=== PATIENT | female | born 1955 | race Caucasian/White ===

== ENCOUNTER 2019-11-11 07:30 | Outpatient (CLI) | payer MEDICARE, SELFPAY ==
--- NOTE | ~2019-11-11 | MM_ITS ---
EXAMINATION: MM screening helen BI w matthew HISTORY: Screening TECHNIQUE: Craniocaudal and mediolateral oblique 3-D tomosynthesis images were obtained and synthetic 2-D images were generated. CAD analysis was submitted and interpreted. COMPARISON: Comparison to multiple prior studies sequentially, with oldest reviewed study dated 12/2013. BREAST PARENCHYMAL COMPOSITION: There are scattered areas of fibroglandular density. FINDINGS: There is no evidence of suspicious mass, calcification, or architectural distortion to sugg est malignancy in either breast. There has been no suspicious interval change. IMPRESSION: 1. No mammographic evidence of malignancy. 2. Recommend routine screening mammography in one year. BI-RADS Category 1: Negative Reviewed, dictated and finalized at location A.
--- NOTE | ~2019-11-11 | DEXA_ITS ---
BMD(1) Young-Adult(2) Age-Matched(3) Region (g/cm2) T-score Z-score WHO Classification L1 0.958 -1.5 0.1 Osteopenia L2 0.985 -1.9 -0.2 Osteopenia L3 0.842 -3.0 -1.4 Osteoporosis L4 0.820 -3.1 -1.5 Osteoporosis L1-L4 0.891 -2.5 -0.8 Osteoporosis L2-L4 0.876 -2.7 -1.1 Osteoporosis Trend: L2-L4 Change vs Change vs Measured Age BMD(1) Baseline Previous Date (years) (g/cm2) (%) (%) 11/11/2019 [age] 0.876 baseline - 1 - Statistically 68% of repeat scans fall within 1SD (+- 0.010 g/cm2 for AP Spine L2-L4) 2 - [place] (Combined NHANES (ages 20-30) / [employer] (ages 20-40)) AP Spine Reference Population (v112) 3 - Matched for Age, Weight (females 25-100 kg), Ethnic 11 - World Health Organization - Definition of Osteoporosis and Osteopenia for Women: Normal = T-score at or above -1.0 SD; Osteopenia = T-score between -1.0 and -2.5 SD; Osteoporosis = T-score at or below -2.5 SD; (WHO definitions only apply when a young healthy Women reference database is used to determine T-scores.) Printed: 11/11/2019 8:36:29 AM (13.60)76:3.00:50.00:12.0 0.00:10.98 0.60x1.05 21.1:%Fat=37.8% 0.00:0.00 0.00:0.00 Filename: [id number] Scan Mode: Standard;OneScan 37.0 Pure Klimaschutz [id number] BMD(1) Young-Adult(2,7) Age-Matched(3) Region (g/cm2) T-score Z-score WHO Classification Neck Left 0.638 -2.9 -1.4 Osteoporosis Right 0.696 -2.5 -0.9 Osteoporosis Mean 0.667 -2.7 -1.1 Osteoporosis Difference 0.058 0.4 0.4 - Total Left 0.758 -2.0 -0.7 Osteopenia Right 0.797 -1.7 -0.4 Osteopenia Mean 0.778 -1.8 -0.6 Osteopenia Difference 0.039 0.3 0.3 - Hip [place] Length Comparison (mm) (Right = 106.2 mm) (Mean = 107.5 mm) (Left = 106.8 mm) Trend: Total Mean Change vs Change vs Measured Age BMD(1) Baseline Previous Date (years) (g/cm2) (%) (%) 11/11/2019 64.2 0.778 baseline - 1 - Statistically 68% of repeat scans fall within 1SD (+- 0.010 g/cm2 for DualFemur Total) 2 - [place] (Combined NHANES (ages 20-30) / [employer] (ages 20-40)) Femur Reference Population (v112) 3 - Matched for Age, Weight (females 25-100 kg), Ethnic 7 - DualFemur Total T-score difference is 0.3. Asymmetry is None. 11 - World Health Organization - Definition of Osteoporosis and Osteopenia for Women: Normal = T-score at or above -1.0 SD; Osteopenia = T-score between -1.0 and -2.5 SD; Osteoporosis = T-score at or below -2.5 SD; (WHO definitions only apply when a young healthy Women reference database is used to determine T-scores.) Printed: 11/11/2019 8:36:30 AM (13.60); Filename: [id number]; Right Femur; 17.4:%Fat=36.1%; Neck Angle (deg)= 57; Scan Mode: Standard 37.0 uGy; Left Femur; 18.2:%Fat=35.3%; Neck Angle (deg)= 61; Scan Mode: Standard 37.0 uGy Zaask [id number] Dear Merlin Fernandez, Your patient Kristie Torres completed a BMD test on 11/11/2019 using the Zaask DXA System (analysis version: 13.60) manufactured by [employer]. The following summarizes the results of our evaluation. PATIENT BIOGRAPHICAL: Name: Kristie Torres Date: 1955 Height: 66.0 in. Gender: Female
== END 2019-11-11 07:31 | disposition home or self-care (01) ==
PROVIDERS: PCP Internal Medicine; Visit Provider Obstetrics & Gynecology
DX: Z12.31 Encounter for screening mammogram for malignant neoplasm of breast (principal); M81.0 Age-related osteoporosis without current pathological fracture
CPT/HCPCS: 77063; 77067; 77080

== ENCOUNTER 2020-08-27 12:11 | Outpatient (CLI) | payer MEDICARE, SELFPAY ==
--- NOTE | ~2020-08-27 | XR_ITS ---
XR chest 2V DATE: 08/27/2020 13:07 INDICATION: Chest pain between shoulder blades TECHNIQUE: 2 views COMPARISON: 12/30/2018 portable AP chest FINDINGS: Normal heart size. No hilar or mediastinal enlargement. No pulmonary infiltrate or consol idation, pulmonary vascular congestion or pleural effusion or pneumothorax. Mild aortic tortuosity. Osteopenia. IMPRESSION: No active cardiopulmonary disease Reviewed, dictated and finalized at location B.
--- NOTE | ~2020-08-27 | US_ITS ---
US breast BI complete 08/27/2020 12:46 Indication: Bilateral breast and axillary tenderness. Procedure: High-resolution complete bilateral breast/axillary ultrasound Comparison: Mammogram dated 11/11/2019. Findings: Right breast ultrasound: There is a 2 mm cyst at 7:00. Mildly prominent ducts in the subareolar location. There are multiple n ormal-appearing right axillary lymph nodes with normal fatty hilum measuring up to 1.6 cm maximum dim ension. Left breast ultrasound: No discrete masses are identified in the left breast. There are multiple left axillary lymph nodes which retain normal fatty hilum measuring up to 2.1 cm maximum dimension. Impression: 1: No sonographic evidence for malignancy in either breast. Normal-appearing bilateral axillary lymph nodes. Routine yearly screening mammogram and regular clinical breast examination are recommended. BI-RADS CATEGORY 2 - BENIGN FINDINGS Reviewed, dictated and finalized at location A. Impression: 1: No sonographic evidence for malignancy in either breast. Normal-appearing bi lateral axillary lymph nodes. Routine yearly screening mammogram and regular clinical breast examination are recommended. BI-RADS CATEGORY 2 - BENIGN FINDINGS
== END 2020-08-27 12:12 | disposition home or self-care (01) ==
LOC: CHSIMG 12:13
PROVIDERS: PCP Internal Medicine; Visit Provider Internal Medicine
DX: N64.4 Mastodynia (principal); N64.3 Galactorrhea not associated with childbirth
CPT/HCPCS: 71046; 76641

== ENCOUNTER 2021-01-18 11:14 | Outpatient (CLI) | payer MEDICARE, SELFPAY ==
--- NOTE | ~2021-01-18 | XR_ITS ---
XR abdomen/kub 1V DATE: 01/18/2021 11:37 INDICATION: Nephrolithiasis TECHNIQUE: AP projection, 2 views COMPARISON: 11/23/2015 KUB FINDINGS: There are small calcifications overlying each kidney consistent with bilateral nephrolithia sis. No apparent ureteral calcified calculus. The psoas shadows are intact. No visceromegaly is evident. There is a prominent amount fecal material in the right colon but no evidence of bowel obstruction. The lung bases appear clear. Heart size appears normal. Diffuse osteopenia. IMPRESSION: Probable bilateral nephrolithiasis Reviewed, dictated and finalized at Location A. Reviewed, dictated and finalized at location B.
== END 2021-01-18 11:15 | disposition home or self-care (01) ==
LOC: ANHIMG 11:18
PROVIDERS: PCP Internal Medicine; Visit Provider Urology
DX: N20.0 Calculus of kidney (principal)
CPT/HCPCS: 74018

== ENCOUNTER 2021-05-15 09:39 | Emergency (ER) | payer MEDICARE, SELFPAY ==
--- NOTE | ~2021-05-15 | CT_ITS ---
EXAMINATION: CT abdomen pelvis wo con DATE: 05/15/2021 10:48 INDICATION: Right flank pain. History of kidney stones. TECHNIQUE: Computed tomography (CT) of the abdomen and pelvis was performed without intravenous contr ast. The dose-length product was 183.66 mGy-cm. Automated exposure control and iterative reconstructi on technique were employed. COMPARISON: CT dated 06/04/2014. FINDINGS: Lung bases are unremarkable. Heart size normal. No significant pleural or pericardial effus ion. There is atherosclerosis. No evidence for aortic aneurysm or lymphadenopathy. There are nonobstructing bilateral renal stones. There is a calcification near the expected location of the right UVJ measuring 2 mm. There is a right extrarenal pelvis. Nonobstructive bowel gas pattern . The liver, spleen, pancreas, adrenal glands are unremarkable. No free air or free fluid. Colonic di verticulosis without evidence for diverticulitis. There is mild lumbar spondylosis. IMPRESSION: 1. Possible 2 mm right UVJ stone, image 149. 2: Nonobstructing bilateral nephrolithiasis. Reviewed, dictated and finalized at location A. 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
--- NOTE | 2021-05-15 09:44 | ED.ABDPAIN ---
HPI - Abdominal Pain General Chief Complaint: Urogenital-Female Stated Complaint: R-sided back pain, possible kidney stone Source: patient, family and RN notes reviewed Mode of arrival: ambulatory Limitations: no limitations History of Present Illness MD elicited complaint: flank pain Pertinent past history: kidney stones Onset (ago): day(s) (6) Pain Consistency: intermittent and other (got worse today) Location: R flank Severity: moderate Quality: stabbing and sharp Radiation: none Migration to: no migration Exacerbating factors: nothing Relieving factors: nothing Associated symptoms: nausea and vomiting Related Data Patient : No Home Medications Medication Instructions Recorded Confirmed atorvastatin 40 mg PO DAILY 05/15/21 05/15/21 metoprolol succinate 25 mg PO DAILY 05/15/21 05/15/21 Allergies Allergy/AdvReac Type Severity Reaction Status Date / Time amoxicillin [From Augmentin] AdvReac Rash Verified 05/15/21 11:15 cephalexin [From Keflex] AdvReac Rash Verified 05/15/21 11:15 clavulanic acid AdvReac Rash Verified 05/15/21 11:15 [From Augmentin] erythromycin base AdvReac Rash Verified 05/15/21 11:15 Review of Systems Review of Systems: All systems reviewed & are unremarkable except as noted in HPI and below Constitutional: Constitutional: Denies chills and Denies fever(s) Genitourinary: Genitourinary: Denies hematuria, Denies nocturia and Denies dysuria PMFSH Past Medical History Medical History (Updated 05/15/21 @ 11:14 by Jose Lambert MD) Hyperlipidemia Hypertension Ureterolithiasis Surgical History Surgical History (Updated 05/15/21 @ 09:48 by Jose Lambert MD) History of appendectomy History of section Social History Social History (Updated 05/15/21 @ 09:48 by Jose Lambert MD) Smoking status: Never smoker Alcohol intake: current Alcohol use details: Occasional Substance use: never Exam Const: General: healthy appearing, no acute distress and alert Nutritional Appearance: well nourished Orientation/consciousness: patient oriented x3 HENMT: Head: normal to inspection Ears: external ears normal Eyes: Conjunctivae: conjunctivae normal Pupils: Equal, round and reactive pupils present EOM: EOMs intact bilaterally Neck: Neck: normal visual inspection Resp: Effort & Inspection: normal respiratory effort Auscultation: clear to auscultation bilaterally Cardio: Rate: regular rate Rhythm: regular rhythm GI: GI Palp: Yes Soft to palpation, No Tenderness to palpation present (GI) and No Guarding due to palpation present (GI) Auscultation: normal bowel sounds : General: Yes CVA tenderness (moderate) on the right Back/Spine/Pelvis: Cervical Spine: cervical ROM normal Thoracic/Lumbar Spine: thoraco-lumbar ROM normal Skin: General skin exam: normal color Rashes: no rashes Neuro: General: patient oriented x3, moves all extremities, no meningeal signs, no focal motor deficits and CN's II-XI intact bilaterally Speech: normal speech Gait exam (Neuro): Normal gait present Extrem: General: normal to inspection and no clubbing, cyanosis or edema Psych: Appearance: grossly normal and well kempt Mental Status: mental status grossly normal Affect: normal affect Attitude: cooperative Thought content: Yes Normal thought content present Course Vital Signs Vital signs: Vital Signs Temperature 36.7 C 05/15/21 10:10 Pulse Rate 64 05/15/21 10:10 Respiratory Rate 20 05/15/21 10:10 Blood Pressure 151/83 H 05/15/21 10:10 Pulse Oximetry 99 05/15/21 10:10 Temperature 36.6 C 05/15/21 11:34 Pulse Rate 60 05/15/21 11:34 Respiratory Rate 20 05/15/21 11:34 Blood Pressure 135/66 05/15/21 11:34 Pulse Oximetry 99 05/15/21 11:34 MDM - Abdominal Pain Lab Data Attestation: I reviewed the patient's lab results. Result diagrams: 05/15/21 10:07 05/15/21 10:07 Labs: Lab Results 02
[2021-05-15] MEDS: KETOROLAC (*BKC) 60 MG/2 ML VIAL IM (10:00)
[2021-05-15 10:10] VITALS: BP 151/83; PULSE 64; RESP 20; TEMP 36.7; O2SAT 99
[2021-05-15 10:11] LABS: Appearance Urine Clear (Clear); Basophils Absolute Auto 0.02 K/mm3 (0.00-0.10); Basophils Percent Auto 0.2 % (0.0-1.0); Bilirubin Urine Negative (Negative); Color Urine Light Yellow (Yellow); Eosinophils Absolute Auto 0.19 K/mm3 (0.02-0.50); Eosinophils Percent Auto 1.9 % (1.0-6.0); Glucose Urine UA Negative (Negative); Hematocrit 43.4 % (35.0-42.0); Hemoglobin 14.4 g/dL (11.7-13.8); Immature Granulocyte Absolute 0.03 K/mm3 (0.00-0.00); Immature Granulocyte Percent A 0.3 % (0.0-0.0); Ketones Urine Negative (Negative); Leukocyte Esterase Ur Negative LEU/UL (Negative); Lymphocytes Absolute Auto 3.52 K/mm3 (1.10-4.50); Lymphocytes Percent Auto 35.8 % (18.0-42.0); Mean Corpuscular HGB Conc 33.2 g/dL (32.0-36.0); Mean Corpuscular Hemoglobin 30.4 pg (27.0-31.0); Mean Corpuscular Volume 91.8 fL (78.0-102.0); Mean Platelet Volume 10.8 fl (9.2-11.8); Monocytes Absolute Auto 0.77 K/mm3 (0.10-0.90); Monocytes Percent Auto 7.8 % (2.0-11.0); Neutrophils Absolute Auto 5.3 K/mm3 (1.7-7.2); Nitrate Urine Negative (Negative); Platelet Count Result 178 K/mm3 (150-420); Protein Urine Negative (Negative); Red Blood Count 4.73 M/mm3 (4.20-5.40); Red Cell Distribution Width 12.1 % (11.6-14.4); Specific Grav Ur >= 1.030 (1.010-1.020); Urobilinogen Urine 0.2 mg/dL (0.2-1.0); White Blood Count 9.8 K/mm3 (4.8-10.8)
[2021-05-15 10:17] LABS: Add Urine Microscopic? YES; Bacteria Urine 1+ /hpf; Blood Urine Trace-Intact (Negative); Mucus Urine Few /lpf; Squamous Epithelial Cell Urine Rare /hpf (Few); WBC Urine 0-3 /hpf (0-3)
[2021-05-15 10:22] LABS: Anion Gap 8 mmol/L (8-16); Blood Urea Nitrogen 22 mg/dL (7-18); Calcium 9.2 mg/dL (8.5-10.1); Carbon Dioxide 28 mmol/L (21-32); Chloride 102 mmol/L (98-108); Estimated Glomerular Filt Rate > 60; Glucose 134 mg/dL (70-99); Osmolality Calculated 291 mOsm/kg (285-295); Potassium 4.4 mmol/L (3.5-5.1); Sodium 138 mmol/L (136-145)
[2021-05-15 11:34] VITALS: BP 135/66; PULSE 60; RESP 20; TEMP 36.6; O2SAT 99
== END 2021-05-15 11:25 | disposition home or self-care (01) ==
PROVIDERS: Emergency Provider Emergency Medicine; PCP Internal Medicine
DX: N20.1 Calculus of ureter (principal); E78.5 Hyperlipidemia, unspecified; I10 Essential (primary) hypertension
CPT/HCPCS: 36415; 74176; 80048; 81001; 85025; 96372; 99284; J1885

== ENCOUNTER 2021-09-08 00:54 | Day surgery (SDC) | payer MEDICARE, SELFPAY ==
[2021-08-15 13:26] VITALS: BMI 23.8
[2021-09-08 08:14] VITALS: BP 124/75; PULSE 81; RESP 16; TEMP 36.2; O2SAT 100
[2021-09-08] MEDS: LACTATED RINGERS 1,000 ML 150 ML IV CONT (08:24)
--- NOTE | 2021-09-08 09:02 | PM.IMHP ---
H&P: HPI History of Present Illness Date/Time: 09/08/21 09:02 Chief Complaint: change in bowel habits Narrative: this is a 66-year-old woman who presented for colonoscopy. Her last colonoscopy was 4 years ago and polyps were removed at that time. She has had a recent change in her bowel habits is having refer and pain with bowel movements. Denies any hematochezia or melena. She denies any family history of cancer. Review of Systems Review of Systems: All systems reviewed & are unremarkable except as noted in HPI and below Constitutional: Constitutional: Denies chills, Denies fever(s), Denies headache(s) and Denies weight loss Eyes: Eyes: Denies change in vision ENT: Denies dizziness, Denies headache(s), Denies neck mass and Denies throat swelling Cardiovascular: Cardiovascular: Denies chest pain, Denies lightheadedness and Denies dyspnea Respiratory: Respiratory: Denies cough, Denies dyspnea and Denies wheezing Gastrointestinal: Gastrointestinal: Denies abdominal pain, Denies change in bowel habits, Denies nausea and Denies vomiting Genitourinary: Genitourinary: Denies hematuria and Denies dysuria Musculoskeletal: Musculoskeletal: Reports as per HPI Integumentary/Breasts: Skin/Breast: Reports as per HPI Neurologic: Denies dizziness and Denies headache(s) Allergic/Immunologic: Allergic/Immunologic: Denies throat swelling and Denies wheezing [facility] Past Medical History Medical History (Updated 09/08/21 @ 09:03 by Floyd Suh DO) Hyperlipidemia Hypertension Ureterolithiasis Surgical History Surgical History (Updated 05/15/21 @ 09:48 by Jose Lambert MD) History of appendectomy History of section Social History Social History (Updated 05/15/21 @ 09:48 by Jose Lambert MD) Smoking status: Never smoker Alcohol intake: never Alcohol use details: Occasional Substance use: never Substance use type: does not use Living arrangements: with family Spiritual care concerns: No Meds Home Medications and Allergies Home Medications Medication Instructions Recorded Confirmed Type hydrocodone 5 mg-acetaminophen 325 1 tablet PO Q8H PRN pain #10 tabs 05/15/21 09/08/21 Rx mg tablet metoprolol succinate 25 mg 25 mg PO DAILY 05/15/21 09/08/21 History tablet,extended release 24 hr aspirin 81 mg tablet,delayed 81 mg PO DAILY 08/15/21 09/08/21 History release cholecalciferol (vitamin D3) 25 25 mcg PO DAILY 08/15/21 09/08/21 History mcg (1,000 unit) tablet (Vitamin D3) cyclobenzaprine 10 mg tablet 10 mg PO DAILY PRN Bladder Spasms 08/15/21 09/08/21 History pravastatin 20 mg tablet 20 mg PO DAILY 08/15/21 09/08/21 History Allergies Allergy/AdvReac Type Severity Reaction Status Date / Time amoxicillin [From Augmentin] AdvReac Rash Verified 09/08/21 08:13 cephalexin [From Keflex] AdvReac Rash Verified 09/08/21 08:13 clavulanic acid AdvReac Rash Verified 09/08/21 08:13 [From Augmentin] erythromycin base AdvReac Rash Verified 09/08/21 08:13 Vital Signs Vital Signs - 24 hr 09/08/21 08:14 Temperature 36.2 C L Pulse Rate 81 Respiratory Rate 16 Blood Pressure 124/75 Pulse Oximetry 100 Oxygen Delivery Room Air Exam Const: General: no acute distress and alert Orientation/consciousness: patient oriented x3 HENMT: Head: normocephalic and atraumatic Ears: hearing grossly normal bilaterally General nose exam: Normal nares present Mouth: Yes Normal oral and palatal mucosa present Eyes: Periorbital: periorbital findings normal Sclera: sclerae normal EOM: EOMs intact bilaterally Neck: Neck: normal visual inspection, no lymphadenopathy and trachea midline Chest: Chest palpation & inspection: normal inspection of the chest Resp: Effort & Inspection: normal respiratory effort Auscultation: clear to auscultation bilaterally Cardio: Jugular venous distension: no JVD Rate: regular rate Rhythm: regular rhythm Heart sounds: S1 candice
--- NOTE | 2021-09-08 09:14 | P.PNAN_ITS ---
Anes - Initial Pre Proc Eval Procedure: Operation Date: 09/08/21 09:15 Proposed Procedures p Colonoscopy - Floyd Suh DO Date/Time: 09/08/21 09:14 Surgeon: Floyd Suh DO Pre Op Diagnosis: change in bowel habits Patient Data Age: 66 Gender: F Height: 1.65 m Weight: 62.3 kg Last Vital Signs Temp 97.2 F L 09/08/21 08:14 Pulse 81 09/08/21 08:14 Resp 16 09/08/21 08:14 BP 124/75 09/08/21 08:14 Pulse Ox 100 09/08/21 08:14 O2 Del Method Room Air 09/08/21 08:14 Allergies Allergy/AdvReac Type Severity Reaction Status Date / Time amoxicillin [From Augmentin] AdvReac Rash Verified 09/08/21 08:13 cephalexin [From Keflex] AdvReac Rash Verified 09/08/21 08:13 clavulanic acid AdvReac Rash Verified 09/08/21 08:13 [From Augmentin] erythromycin base AdvReac Rash Verified 09/08/21 08:13 Home Medications Medication Instructions Recorded Confirmed Type hydrocodone 5 mg-acetaminophen 325 1 tablet PO Q8H PRN pain #10 tabs 05/15/21 09/08/21 Rx mg tablet metoprolol succinate 25 mg 25 mg PO DAILY 05/15/21 09/08/21 History tablet,extended release 24 hr aspirin 81 mg tablet,delayed 81 mg PO DAILY 08/15/21 09/08/21 History release cholecalciferol (vitamin D3) 25 25 mcg PO DAILY 08/15/21 09/08/21 History mcg (1,000 unit) tablet (Vitamin D3) cyclobenzaprine 10 mg tablet 10 mg PO DAILY PRN Bladder Spasms 08/15/21 09/08/21 History pravastatin 20 mg tablet 20 mg PO DAILY 08/15/21 09/08/21 History Patient hx anesthesia problems: none Family hx anesthesia problems: none Results Review: All pre-operative results and documents have been reviewed as part of the pre- operative evaluation. [facility] Past Medical History Medical History (Updated 09/08/21 @ 09:03 by Floyd Suh DO) Hyperlipidemia Hypertension Ureterolithiasis Surgical History Surgical History (Updated 05/15/21 @ 09:48 by Jose Lambert MD) History of appendectomy History of section Social History Social History (Updated 05/15/21 @ 09:48 by Jose Lambert MD) Smoking status: Never smoker Alcohol intake: never Alcohol use details: Occasional Substance use: never Substance use type: does not use Living arrangements: with family Spiritual care concerns: No Anes - Eval Final PreProcedure Day of Procedure 09/08/21 09:14 Patient weight: normal Heart: regular rate and rhythm Airway: Mallampati scale class II Neurological: alert and oriented Last oral intake: >/= 8 hours ASA classification: II Emergent: no Anesthetic plan: proceed Anesthesia type and monitoring: general GIVS and standard monitoring Results Review: All pre-operative results and documents have been reviewed as part of the pre- operative evaluation. Informed Consent: The patient's anesthetic plan and its attendant risks and benefits were discussed with the patient/family/POA. Questions were solicited and answers provided to the satisfaction of the patient/family/POA.
[2021-09-08 09:41] VITALS: BP 111/70; PULSE 74; RESP 20; O2SAT 97
[2021-09-08 09:51] VITALS: BP 130/75; PULSE 60; RESP 17; O2SAT 98
[2021-09-08 10:01] VITALS: BP 134/72; PULSE 54; RESP 13; O2SAT 100
== END 2021-09-08 10:14 | disposition home or self-care (01) ==
PROVIDERS: PCP Internal Medicine; Visit Provider Surgery
PROC: 0DJD8ZZ Inspection of Lower Intestinal Tract, Via Natural or Artificial Opening Endoscopic (ICD-10-PCS; CPT 45378; principal; 2021-09-08 09:15)
DX: R19.4 Change in bowel habit (principal); K57.30 Diverticulosis of large intestine without perforation or abscess without bleeding; Z86.010 Personal history of colon polyps; I10 Essential (primary) hypertension; E78.5 Hyperlipidemia, unspecified; Z79.82 Long term (current) use of aspirin
CPT/HCPCS: 45378; J2704; J7120

== ENCOUNTER 2021-10-14 13:22 | Outpatient (CLI) | payer MEDICARE, SELFPAY ==
--- NOTE | ~2021-10-14 | MM_ITS ---
EXAMINATION: MM screening helen BI w matthew HISTORY: Screening TECHNIQUE: Craniocaudal and mediolateral oblique 3-D tomosynthesis images were obtained and synthetic 2-D images were generated. CAD analysis was submitted and interpreted. COMPARISON: Comparison to multiple prior studies sequentially, with oldest reviewed study dated 12/2014. BREAST PARENCHYMAL COMPOSITION: Breast composed of scattered areas of fibroglandular density FINDINGS: There is no evidence of suspicious mass, calcification, or architectural distortion to sugg est malignancy in either breast. There has been no suspicious interval change. IMPRESSION: 1. No mammographic evidence of malignancy. 2. Recommend routine screening mammography in one year. BI-RADS Category 1: Negative Reviewed, dictated and finalized at location A.
== END 2021-10-14 13:23 | disposition home or self-care (01) ==
LOC: CHSIMG 13:23
PROVIDERS: PCP Internal Medicine; Visit Provider Obstetrics & Gynecology
DX: Z12.31 Encounter for screening mammogram for malignant neoplasm of breast (principal)
CPT/HCPCS: 77063; 77067

== ENCOUNTER 2021-11-16 12:23 | Outpatient (CLI) | payer MEDICARE, SELFPAY ==
--- NOTE | ~2021-11-16 | DEXA_ITS ---
Bone Density Report Name: KHOA PLAZA Age: 66 Sex: Female Ethnicity: White Date of : 1955 Indication: postmenopausal; screening for osteoporosis; parental hip fracture; Referring Provider: Merlin Fernandez Study: Bone densitometry was performed. Exam Date: November 16, 2021 Accession number: [id number] Bone Density: Region BMD T-score Z-score Classification AP Spine(L1, L2, L3) 0.776 -2.2 -0.3 Osteopenia Femoral Neck (Left) 0.512 -3.0 -1.3 Osteoporosis Total Hip (Left) 0.732 -1.7 -0.3 Osteopenia Femoral Neck (Right) 0.557 -2.6 -0.9 Osteoporosis Total Hip (Right) 0.732 -1.7 -0.3 Osteopenia Femoral Neck Mean 0.535 -2.8 -1.1 Osteoporosis Total Hip Mean 0.732 -1.7 -0.3 Osteopenia World Health Organization criteria for BMD impression classify patients as: Normal (T-score at or above -1.0), Osteopenia (T-score between -1.0 and -2.5), or Osteoporosis (T-score at or below -2.5). 10-year Fracture Risk: FRAX not reported because: Some T-score for Spine Total or Hip Total or Femoral Neck at or below -2.5 Treated for osteoporosis Clinical Information Provided by Patient: Parent has had a hip fracture Is being treated for osteoporosis Has used the following medications: Fosamax (i.e. alendronate), Vitamin D, Calcium Patient maximum height was 65 No regular weight bearing exercise Drinks caffeinated beverages Onset of menses at age 11 Number of children 2 Impression: The patient has osteoporosis, based on the Left Femoral Neck T-score. The patient has risk factors, including: parental hip fracture. Discussion: It is important to ask patients whether they are taking their medications and to encourage continued and appropriate compliance with their osteoporosis therapies to reduce fracture risk. It is also important to review their risk factors and encourage appropriate calcium and vitamin D intakes, exercise, fall prevention and other lifestyle measures. Follow-Up: Consider a repeat BMD and Vertebral Fracture Assessment (VFA) exam in 2 years or sooner if medically necessary, to reassess this patient's status. Reported by: Dr. Damián Anaya on 11/16/2021 12:47:00 PM. Reviewed, dictated and finalized at location ACarlos [facility]
== END 2021-11-16 12:24 | disposition home or self-care (01) ==
LOC: CHSIMG 12:25
PROVIDERS: PCP Internal Medicine; Visit Provider Internal Medicine
DX: M81.0 Age-related osteoporosis without current pathological fracture (principal)
CPT/HCPCS: 77080

== ENCOUNTER 2022-01-18 10:35 | Outpatient (CLI) | payer MEDICARE, SELFPAY ==
--- NOTE | ~2022-01-18 | XR_ITS ---
EXAM: XR abdomen/kub 1V DATE: 01/18/2022 11:21 HISTORY: CALCULUS OF KIDNEY FOLLOW UP . COMPARISON: 01/18/2021 at 11:32 AM, CT abdomen and pelvis 05/15 2021. FINDINGS: Normal bowel gas pattern. No organomegaly. Stable bilateral nephrolithiasis. Osteopenia. M ild degenerative change in the lumbar spine and bilateral hips. IMPRESSION: Stable nephrolithiasis. Reviewed, dictated and finalized at location K. IMPRESSION: Stable nephrolithiasis.
--- NOTE | ~2022-01-18 | US_ITS ---
EXAMINATION: US retroperitoneal comp DATE: 01/18/2022 11:32 INDICATION: Calculus of kidneys TECHNIQUE: Multiple ultrasound grayscale images of the kidneys were obtained. COMPARISON: CT abdomen and pelvis dated 05/15/2021 FINDINGS: The right kidney measures 10.9 x 3.6 x 4.9 cm. The left kidney measures 11.2 x 4.3 x 4.6 cm. The kidn eys demonstrate normal echogenicity. There are small echogenic and shadowing stones in both kidneys, the largest on the right measuring 4 mm in maximal diameter. There is no hydronephrosis in either kid meño. The bladder is normal. IMPRESSION: 1. Bilateral nonobstructing nephrolithiasis. No hydronephrosis. Reviewed, dictated and finalized at location B.
== END 2022-01-18 10:36 | disposition home or self-care (01) ==
LOC: CHSIMG 10:37
PROVIDERS: PCP Internal Medicine; Visit Provider Urology
DX: N20.0 Calculus of kidney (principal)
CPT/HCPCS: 74018; 76770

== ENCOUNTER 2022-01-31 11:09 | Outpatient (CLI) | payer MEDICARE, SELFPAY ==
[2022-01-31 11:15] VITALS: BMI 23.4
[2022-01-31] MEDS: ZOLEDRONIC ACID 5 MG/100 ML 100 ML 400 MG IVPB (11:25)
[2022-01-31 11:51] VITALS: BP 126/74; PULSE 72; RESP 14; TEMP 36.4; O2SAT 99
--- NOTE | 2022-01-31 12:01 | PC.NURSE ---
Patient here for IV Reclast infusion. Education given. All concerns answered. IV Reclast administered. SEE MAR. Tolerated well. Safe exit of hospital.
== END 2022-01-31 11:10 | disposition home or self-care (01) ==
PROVIDERS: PCP Internal Medicine; Visit Provider Internal Medicine
DX: M81.0 Age-related osteoporosis without current pathological fracture (principal)
CPT/HCPCS: 96374; J3489

== ENCOUNTER 2022-02-20 15:18 | Outpatient (CLI) | payer MEDICARE, SELFPAY ==
--- NOTE | ~2022-02-20 | XR_ITS ---
XR wrist RT w scaphoid DATE: 02/20/2022 15:51 INDICATION: Right wrist injury from fall 5 days ago TECHNIQUE: 4 views COMPARISON: None FINDINGS: There is generalized osteopenia. No fracture or dislocation, periosteal reaction or bone destruction, erosive change or chondrocalcino sis. IMPRESSION: Osteopenia No fracture or dislocation Reviewed, dictated and finalized at location A. INUM WELDER
== END 2022-02-20 15:19 | disposition home or self-care (01) ==
LOC: CHSIMG 15:21
PROVIDERS: PCP Internal Medicine; Visit Provider Internal Medicine
DX: S69.91XA Unspecified injury of right wrist, hand and finger(s), initial encounter (principal)
CPT/HCPCS: 73110

== ENCOUNTER 2022-10-25 13:53 | Outpatient (CLI) | payer MEDICARE, SELFPAY ==
--- NOTE | ~2022-10-25 | MM_ITS ---
EXAMINATION: MM screening helen BI w matthew HISTORY: Screening TECHNIQUE: Craniocaudal and mediolateral oblique 3-D tomosynthesis images were obtained and synthetic 2-D images were generated. CAD analysis was submitted and interpreted. COMPARISON: Comparison to multiple prior studies sequentially, with oldest reviewed study dated 09/20. BREAST PARENCHYMAL COMPOSITION: Breast composed of scattered areas of fibroglandular density FINDINGS: There is no evidence of suspicious mass, calcification, or architectural distortion to sugg est malignancy in either breast. There has been no suspicious interval change. IMPRESSION: 1. No mammographic evidence of malignancy. 2. Recommend routine screening mammography in one year. BI-RADS Category 1: Negative Reviewed, dictated and finalized at location A.
== END 2022-10-25 13:54 | disposition home or self-care (01) ==
PROVIDERS: PCP Internal Medicine; Visit Provider Internal Medicine
DX: Z12.31 Encounter for screening mammogram for malignant neoplasm of breast (principal)
CPT/HCPCS: 77063; 77067

== ENCOUNTER 2023-01-24 13:22 | Outpatient (CLI) | payer MEDICARE, SELFPAY ==
--- NOTE | ~2023-01-24 | XR_ITS ---
EXAMINATION: XR abdomen/kub 1V DATE: 01/24/2023 14:43 INDICATION: Kidney stones. TECHNIQUE: A supine view of the abdomen on 2 radiographs was obtained. COMPARISON: Abdomen radiographs 01/18/2022, CT abdomen and pelvis 05/15/2021 FINDINGS: There are no dilated loops of bowel. There is a moderate volume of stool in the colon. Ther e are 3 stones in right kidney measuring up to 3 mm. There are 2 stones in left kidney measuring up t o 3 mm. There are phleboliths in the pelvis. IMPRESSION: 1. Bilateral kidney stones. Reviewed, dictated and finalized at location E. IMPRESSION: 1. Bilateral kidney stones.
--- NOTE | ~2023-01-24 | US_ITS ---
EXAMINATION: US retroperitoneal comp DATE: 01/24/2023 14:15 INDICATION: Renal stones EXAMINATION: US retroperitoneal comp DATE: 01/24/2023 14:15 INDICATION: Nephrolithiasis TECHNIQUE: Multiple ultrasound grayscale images of the kidneys were obtained. COMPARISON: Ultrasound and KUB dated 01/18/2022 FINDINGS: The right kidney measures 10.4 x 4.5 x 4.8 cm. The left kidney measures 10.2 x 4.8 x 6.2 cm. The kidn eys demonstrate normal echogenicity. There are 2 small echogenic foci with associated parenchymal art ifact consistent with nephrolithiasis at the upper and lower poles of the right kidney. Additional hy perechoic stone at the lower pole of the left kidney. Corresponding calcifications are seen in both k idneys on the KUB. There is no hydronephrosis in either kidney. No stones identified. The bladder is normal with bilateral ureteral jets identified on color Doppler. IMPRESSION: 1. Bilateral nonobstructing nephrolithiasis without hydronephrosis. Reviewed, dictated and finalized at location A.
== END 2023-01-24 13:23 | disposition home or self-care (01) ==
LOC: CHSIMG 13:24
PROVIDERS: PCP Internal Medicine; Visit Provider Urology
DX: N20.0 Calculus of kidney (principal)
CPT/HCPCS: 74018; 76770

== ENCOUNTER 2023-02-01 09:59 | Outpatient (CLI) | payer MEDICARE, SELFPAY ==
[2023-02-01] MEDS: ZOLEDRONIC ACID 5 MG/100 ML 100 ML 400 MG IVPB (10:25)
[2023-02-01 10:29] VITALS: BP 140/63; PULSE 80; RESP 16; TEMP 36.6; O2SAT 98
[2023-02-01 10:49] VITALS: BMI 23.4
--- NOTE | 2023-02-01 10:49 | PC.NURSE ---
Patient here for yearly IV Reclast infusion. Education given. No concerns voiced. Reclast administered. SEE MAR. Tolerated well. Safe exit of hospital per self/amb.
== END 2023-02-01 10:00 | disposition home or self-care (01) ==
LOC: CHSTREATRM 10:01
PROVIDERS: PCP Internal Medicine; Visit Provider Internal Medicine
DX: M81.0 Age-related osteoporosis without current pathological fracture (principal)
CPT/HCPCS: 96374; J3489

== ENCOUNTER 2023-10-29 11:41 | Outpatient (CLI) | payer MEDICARE, SELFPAY ==
--- NOTE | ~2023-10-29 | MM_ITS ---
EXAMINATION: MM screening helen BI w matthew HISTORY: Screening TECHNIQUE: Craniocaudal and mediolateral oblique 3-D tomosynthesis images were obtained and synthetic 2-D images were generated. CAD analysis was submitted and interpreted. COMPARISON: Comparison to multiple prior studies sequentially, with oldest reviewed study dated 10/25. BREAST PARENCHYMAL COMPOSITION: Not dense: There are scattered areas of fibroglandular density. FINDINGS: There is no evidence of suspicious mass, calcification, or architectural distortion to sugg est malignancy in either breast. There has been no suspicious interval change. IMPRESSION: 1. No mammographic evidence of malignancy. 2. Recommend routine screening mammography in one year. BI-RADS Category 1: Negative Reviewed, dictated and finalized at location B.
== END 2023-10-29 11:42 | disposition home or self-care (01) ==
LOC: CHSIMG 11:44
PROVIDERS: PCP Internal Medicine; Visit Provider Obstetrics & Gynecology
DX: Z12.31 Encounter for screening mammogram for malignant neoplasm of breast (principal)
CPT/HCPCS: 77063; 77067

== ENCOUNTER 2023-11-28 12:53 | Outpatient (CLI) | payer MEDICARE, SELFPAY ==
--- NOTE | ~2023-11-28 | DEXA_ITS ---
Bone Density Report Name: KHOA PLAZA Age: 68 Sex: Female Ethnicity: White Date of : 1955 Indication: postmenopausal osteoporosis; monitoring treatment; parental hip fracture; prior fracture; Referring Provider: Merlin Fernandez Study: Bone densitometry was performed. Exam Date: November 28, 2023 Accession number: [id number] Bone Density: Region BMD T-score Z-score Classification AP Spine(L1, L3) 0.757 -2.3 -0.3 Osteopenia Femoral Neck (Left) 0.541 -2.8 -1.0 Osteoporosis Total Hip (Left) 0.760 -1.5 0.0 Osteopenia Femoral Neck (Right) 0.560 -2.6 -0.8 Osteoporosis Total Hip (Right) 0.776 -1.4 0.2 Osteopenia Femoral Neck Mean 0.550 -2.7 -0.9 Osteoporosis Total Hip Mean 0.768 -1.4 0.1 Osteopenia World Health Organization criteria for BMD impression classify patients as: Normal (T-score at or above -1.0), Osteopenia (T-score between -1.0 and -2.5), or Osteoporosis (T-score at or below -2.5). 10-year Fracture Risk: FRAX not reported because: Some T-score for Spine Total or Hip Total or Femoral Neck at or below -2.5 Treated for osteoporosis Previous Exams: Region Exam Age BMD T-score BMD Change BMD Change Date g/cm2 vs Baseline vs Previous AP Spine (L1,L3) 11/28/2023 68 0.757 -2.3 0.020 (2.7%) 0.020 (2.7%) 11/16/2021 66 0.737 -2.5 Total Hip(Left) 11/28/2023 68 0.760 -1.5 0.028 (3.9%)* 0.028 (3.9%)* 11/16/2021 66 0.732 -1.7 Total Hip(Right) 11/28/2023 68 0.776 -1.4 0.044 (6.0%)* 0.044 (6.0%)* 11/16/2021 66 0.732 -1.7 *Denotes significance at 95% confidence level, LSC for AP Spine = 0.022 g/cm2, LSC for Total Hip = 0.027 g/cm2 Clinical Information Provided by Patient: Has had a low trauma fracture Parent has had a hip fracture Is being treated for osteoporosis Has used the following medications: Fosamax (i.e. alendronate), Reclast (i.e. zoledronate), Vitamin D, Calcium Patient maximum height was 65 Menopause Age: 49 No regular weight bearing exercise Onset of menses at age 12 Number of children 2 Impression: The patient has established osteoporosis, based on the Left Femoral Neck T-score and the existence of a prior fracture. The patient has risk factors, including: parental hip fracture, previous fracture. No significant bone loss was observed. Discussion: PATIENT UNDER TREATMENT WITH NO SIGNIFICANT BMD LOSS SINCE LAST EXAM. In an untreated patient, BMD typically declines with
== END 2023-11-28 12:54 | disposition home or self-care (01) ==
LOC: CHSIMG 12:55
PROVIDERS: PCP Internal Medicine; Visit Provider Internal Medicine
DX: Z78.0 Asymptomatic menopausal state (principal); M81.0 Age-related osteoporosis without current pathological fracture; M85.89 Other specified disorders of bone density and structure, multiple sites
CPT/HCPCS: 77080

== ENCOUNTER 2023-12-05 12:20 | Outpatient (CLI) | payer MEDICARE, SELFPAY ==
--- NOTE | ~2023-12-05 | US_ITS ---
EXAMINATION: US retroperitoneal comp DATE: 12/05/2023 13:15 INDICATION: Calculus of kidney. TECHNIQUE: Multiple ultrasound grayscale images of the kidneys were obtained. COMPARISON: Ultrasound 01/24/2023, abdomen radiograph 11/27/2023 FINDINGS: The right kidney measures 10.6 x 4.5 x 4.3 cm. The left kidney measures 11.3 x 4.3 x 5.2 cm. The kidn eys demonstrate normal parenchymal echogenicity. Bilateral kidney stones are noted. There is no hydro nephrosis. The bladder is normal. IMPRESSION: 1. Bilateral kidney stones. No hydronephrosis. Reviewed, dictated and finalized at location A.
--- NOTE | ~2023-12-05 | XR_ITS ---
EXAMINATION: XR abdomen/kub 1V DATE: 12/05/2023 12:57 INDICATION: Back pain. Kidney stones. TECHNIQUE: A supine view of the abdomen on 2 radiographs was obtained. COMPARISON: Abdomen radiographs 01/24/2023, CT abdomen and pelvis 05/15/21 FINDINGS: There are no dilated loops of bowel. There are phleboliths in the pelvis. Cartilage calcifi cations overlie the kidneys. There are multiple stones in each kidney measuring up to at least 4 mm o n the right. IMPRESSION: 1. Bilateral kidney stones. Reviewed, dictated and finalized at location A. IMPRESSION: 1. Bilateral kidney stones.
== END 2023-12-05 12:21 | disposition home or self-care (01) ==
LOC: CHSIMG 12:24
PROVIDERS: PCP Internal Medicine; Visit Provider Physician Assistant
DX: N20.0 Calculus of kidney (principal)
CPT/HCPCS: 74018; 76770

== ENCOUNTER 2024-04-28 15:39 | Emergency (ER) | payer MEDICARE, SELFPAY ==
--- NOTE | ~2024-04-28 | XR_ITS ---
EXAMINATION: XR hip LT 2V w AP pelvis DATE: 04/28/2024 16:34 INDICATION: Left hip pain. TECHNIQUE: An anteroposterior view of the pelvis and 2 views of left hip were obtained. COMPARISON: None. FINDINGS: Bone alignment is normal. No fracture. There is mild osteoarthritis of the hips. There is s evere lower lumbar spondylosis. IMPRESSION: 1. Mild osteoarthritis of the hips. Reviewed, dictated and finalized at location B. VANCE MANAGER
[2024-04-28 15:40] VITALS: BP 151/62; PULSE 74; RESP 14; TEMP 36.3; O2SAT 99
--- NOTE | 2024-04-28 15:56 | ED_ITS ---
HPI - Extremity Injury (Lower) General Chief Complaint: Extremity Problem,Nontraumatic Stated Complaint: LEFT HIP PAIN Time Seen by Provider: 04/28/24 15:47 Source: patient Mode of arrival: ambulatory Limitations: no limitations History of Present Illness HPI Narrative: Patient is a 68-year-old female with significant past medical history that presents today with left hip pain. Patient was playing [employer] and sit she did not have any pain issues playing. She then walked 7 miles and says she still denied pain after that. However today the pain started getting worse and worse until it got bad enough to bring her into the emergency department. She is does have osteoarthritis of the left hip has never got any injections to it and has never a surgeries or manipulations to the joint. Related Data Home Medications ?Medication ?Instructions ?Recorded ?Confirmed ?Last Taken ?Type metoprolol succinate 25 mg 25 mg PO DAILY 05/15/21 02/01/23 09/06/21 18:00 History tablet,extended release 24 hr aspirin 81 mg tablet,delayed 81 mg PO DAILY 08/15/21 02/01/23 09/06/21 18:00 History release cholecalciferol (vitamin D3) 25 25 mcg PO DAILY 08/15/21 02/01/23 09/06/21 18:00 History mcg (1,000 unit) tablet (Vitamin D3) cyclobenzaprine 10 mg tablet 10 mg PO DAILY PRN Bladder Spasms 08/15/21 02/01/23 Unknown History pravastatin 20 mg tablet 20 mg PO DAILY 08/15/21 02/01/23 09/06/21 18:00 History Allergies Allergy/AdvReac Type Severity Reaction Status Date / Time amoxicillin (From Augmentin) AdvReac Rash Verified 09/08/21 08:13 cephalexin (From Keflex) AdvReac Rash Verified 09/08/21 08:13 clavulanic acid (From AdvReac Rash Verified 09/08/21 08:13 Augmentin) erythromycin base AdvReac Rash Verified 09/08/21 08:13 Review of Systems Review of Systems: All systems reviewed & are unremarkable except as noted in HPI and below Constitutional: Constitutional: Reports no additional constitutional complaints Eyes: Eyes: Reports no additional eye complaints ENT: Reports system reviewed and no additional complaints, except as documented Cardiovascular: Cardiovascular: Reports no additional cardiovascular complaints Respiratory: Respiratory: Reports no additional respiratory complaints Gastrointestinal: Gastrointestinal: Reports no additional gastrointestinal complaints Genitourinary: Genitourinary: Reports no additional female genitourinary complaints Musculoskeletal: Musculoskeletal: Reports as per HPI and Reports arthralgias (left hip) Integumentary/Breasts: Skin/Breast: Reports system reviewed and no additional complaints, except as docu Neurologic: Reports system reviewed and no additional complaints, except as documented Psychiatric: Psychiatric: Reports no additional psychiatric complaints Endocrine: Endocrine: Reports no additional endocrine complaints Hematologic/Lymphatic: Hematologic/Lymphatic: Reports no additional hematologic/lymphatic complaints Allergic/Immunologic: Allergic/Immunologic: Reports no additional allergic/immunologic complaints [facility] Past Medical History Medical History Hyperlipidemia Hypertension Ureterolithiasis Surgical History Surgical History (Updated 05/15/21 @ 09:48 by Jose PerlaMD) History of appendectomy History of section Social History Social History (Updated 05/15/21 @ 09:48 by Jose PerlaMD) Smoking status: Never smoker Alcohol intake: never Alcohol use details: Occasional Substance use: never Substance use type: does not use Living arrangements: with family Spiritual care concerns: No Exam Const: General: healthy appearing Nutritional Appearance: well nourished Orientation/consciousness: patient oriented x3 HENMT: Head: normal to inspection Ears: external ears normal Face/Nose/Sinus: Normal external nose present Face and sinus: normal facial exam Mouth: Yes Normal oral and palatal mucosa present Eyes: Conjunctivae: conjunctivae normal Pupils: Equal, round and reactive pupils present EOM: EOMs intact bilaterally Neck: Neck: normal visual inspection Chest: Chest palpation & inspection: normal inspection of the chest Resp: Effort & Inspection: normal respiratory effort Auscultation: clear to auscultation bilaterally Cardio: Rate: regular rate Rhythm: regular rhythm GI: GI Palp: Yes Soft to palpation Back/Spine/Pelvis: Back: no CVA tenderness Skin: General skin exam: normal color Rashes: no rashes Wounds: no wounds Neuro: General: patient oriented x3 Cranial nerves: Yes Nystagmus not present Speech: normal speech Extrem: General: normal to inspection Psych: Mental Status: mental status grossly normal Affect: normal affect Attitude: cooperative Course Vital Signs Vital signs: Vital Signs Temperature 97.3 F L 04/28/24 15:40 Pulse Rate 74 01/20/25 15:40 Respiratory Rate 14 04/28/24 15:40 Blood Pressure 151/62 H 04/28/24 15:40 Pulse Oximetry 99 04/28/24 15:40 Oxygen Delivery Room Air 04/28/24 15:40 Temperature 97.3 F L 04/28/24 15:40 Pulse Rate 74 04/28/24 15:40 Respiratory Rate 14 04/28/24 15:40 Blood Pressure 151/62 H 04/28/24 15:40 Pulse Oximetry 99 04/28/24 15:40 Oxygen Delivery Room Air 04/28/24 15:40 MDM - Extremity Injury (Lower) MDM Narrative Medical decision making narrative: patient is a 68-year-old female with significant past medical history presents today with a left hip injury. Patient was looking and lock 7000 he feet/ 7 miles and plate bad med as well and she started having pain in her left hip. WIll do an ray of the left hip. left hip x-ray showed no acute abnormalities discussed with patient to use ice and ibuprofen and then switch to heat. Differential Diagnosis Differential diagnosis: Likely other (hip injury) Medical Records Attestation: I reviewed the patient's medical records. Lab Data Attestation: I reviewed the patient's lab results. ABG Data Attestation: I personally reviewed and interpreted this ABG as follows: Imaging Data Attestation: I personally reviewed and interpreted this imaging study as follows: Discharge Plan Discharge Clinical Impression: Hip injury, Acute hip pain Patient Disposition: Home, Self-Care Condition: Stable Instructions: Hip Pain (ED) Patient Language: Sierra Leonean Prescriptions: No Action hydrocodone-acetaminophen 5-325 mg tablet 1 tablet PO Q8H PRN (Reason: pain) Qty: 10 0RF metoprolol succinate 25 mg tablet extended release 24 hr 25 mg PO DAILY pravastatin 20 mg tablet 20 mg PO DAILY cyclobenzaprine 10 mg tablet 10 mg PO DAILY PRN (Reason: Bladder Spasms) aspirin 81 mg Tablet,Delayed Release (Dr/Ec) 81 mg PO DAILY cholecalciferol (vitamin D3) [Vitamin D3] 25 mcg (1,000 unit) Tablet 25 mcg PO DAILY Follow-up/Referrals: Merlin Fernandez MD [Primary Care Provider] - Time of Disposition: 18:04
[2024-04-28] MEDS: KETOROLAC (*BKC) 60 MG/2 ML VIAL IM (16:35)
[2024-04-28 17:46] VITALS: BP 151/62; PULSE 59; RESP 18; O2SAT 97
--- OUTSIDE RECORDS SUMMARY | 2024-05-01 14:37 | XMS_ITS | Clinical Summary ---
Author Organization [facility] Address [address] [place] [address]. [place], [place] [address] [place] [address] Care Team Providers Care Stain Sprayer Name Role Phone Merlin Fernandez MD Primary Care Provider [phone] Kaden Harley MD Unavailable UnavailBarbara Pires APRN, PEOPLE MANAGER-C Unavailable Allergies Active Allergy Reactions Criticality Noted Date Comments Amoxicillin-Pot Clavulanate Vomiting 01/02/20 19 Erythromycin Unknown 01/01/2019 Cephalexin Itching 01/01/2019 Medications aspirin EC (ECOTRIN) 81 MG tablet Take 1 tablet (81 mg total) by mouth daily. Active pravastatin (PRAVACHOL) 20 MG tablet Take 1 tablet (20 mg total) by mouth nightly. 02/17/20 22 Active vitamin D3, cholecalcifero l, 1000 UNIT Tab tablet Take 1 tablet (25 mcg total) by mouth daily. Active zoledronic acid (RECLAST) 5 MG/100ML Solution infusion Inject 100 mLs (5 mg total) into the vein see administration instructions. yearly Active metoprolol succinate ER (TOPROL-XL) 25 MG 24 hr tablet Take 1 tablet (25 mg total) by mouth every morning. 90 tablet 04/18/19 25 Active metoprolol succinate ER (TOPROL-XL) 25 MG 24 hr tablet take 1 tablet by mouth every day in the morning 90 tablet 3 05/08/19 24 025 Discontin ued(Reord er) Active Problems Problem Noted Date Diagnosed Date Coronary artery disease invo lving houlton coronary artery of houl[place] heart without angina pectoris 09/13/2019 Mixed hyperlipidemia 07/25/2019 SOB (shortness of breath) Fatigue Chest pain Encounters Date Type Department Care Team Description 04/29/2024 1:30 PM SCARRER Office Visit [facility] [address] [place] [phone] Barbara Landeros APRN, PEOPLE MANAGER-C Follow Up; Coronary Artery Disease 04/29/2024 Travel 04/29/2024 Orders Only [facility] [address] [place] [phone] Nimesh Ribera MD 04/18/2024 Telephone [facility] [address] [place] [phone] Barbara Landeros, COURTNEY, PEOPLE MANAGER-C Refill Request from Last 3 Months Family History Medical History Relation Comments Breast Cancer Mother Relation Status Comments Mother Social History Tobacco Use Types Packs/Day Years Used Date Smoking Tobacco: Never Smokeless Tobacco: Never Alcohol Use Standard Drinks/Week Comments No 0 (1 standard drink = 0.6 oz pur e alcohol) AUDIT-C Answer Date Recorded Frequency of Alcohol Consumption Never 01/01/2019 Average Number of Drinks Not on file 019 Frequency of Binge Drinking Not on file 12/09 Comments Unknown Sex and Gender Information Value Date Recorded Sex Assigned at Female 04/29/2024 1:16 PM SCARRER Legal Sex Female 2:54 PM CDT Gender Identity Not on file Sexual Orientation Not on file 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 Not on file Not on fi le Last Filed Vital Signs Vital Sign Reading Time Taken Comments Blood Pressure 120/72 04/29/2024 1:32 PM SCARRER Pulse 55 04/29/2024 1:32 PM SCARRER Temperature - - Respiratory Rate 16 04/29/2024 1:32 PM SCARRER Oxygen Saturation 97% 04/29/2024 1:32 PM SCARRER Inhaled Oxygen Concentration - - Weight 63.5 kg (140 lb) 04/29/2024 1:32 PM SCARRER Height 165.1 cm (5' 5 ) 04/29/2024 1:32 PM SCARRER Body Mass Index 23.3 04/29/2024 1:32 PM SCARRER Plan of Treatment Upcoming Encounters Date Type Department Care Team (Late st Contact Info) Description 05/04/2025 1:00 PM SCARRER Appointment [facility] Non Invasive Cardiology - [facility] [address] [place] [address] Barbara Landeros APRN, PEOPLE MANAGER-C [address] [phone] 05/04/2025 2:00 PM SCARRER Appointment [facility] Vascular Ultrasound - [facility] [address] [place], [place] [address] Barbara Landeros APRN, PEOPLE MANAGER-C [address] [phone] 05/04/2025 3:00 PM SCARRER Office Visit [facility] [address] [place] [address] Barbara Landeros APRN, PEOPLE MANAGER-C [address] [phone] Health Maintenance Due Date Last Done Comments ASCVD Statin 1955 Colorectal Cancer Screening Colonoscopy (10 Years) 1955 Hepatitis C 08/10/1971 DTaP, Tdap and Td Vaccines (1 - Tdap) 1972 RSV Immunization or 60+ Years (1 - Risk 60-74 years 1-dose series) 2013 Zoster Vaccines (2 of 3) 11/06/2013 09/11/2013 Annual Medicare Wellness Visit 2018 Dexa Scan (General) 2018 ASCVD LDL 02/23/2020 02/22/2019, 01/07, 01/16/2019 Mammogram Screening 09/30/2022 09/30/2020 COVID-19 Vaccine (3 - 4-25 season) 2023 06/18/2020, 05/28/2020 Influenza Adult (#1) 2024 01/02/2020, 03/04/2018, 01/28/2016, Additional history exists Pneumococcal Vaccine: 65+ Years Completed 10/15/2019, 11/22/2018 Meningococcal B Vaccine Aged Out No l onger eligible based on patient's age to complete this topic Meningococcal Vaccine Aged Out No marino clarita eligible based on patient's age to complete this topic RSV Immunizations Under 20 Months Aged Out No longer eligible based on patient's age to complete this topic Procedures Procedure Name Priority Date/Time Associated Diagnosis Comments ELECTROCARDIOGRAM (NON MIDMARK ACQUIRED) Routine 04/29/2024 1:29 PM SCARRER Coronary artery disease involving houlton coronary artery of houlton heart without angina pectoris Hyperlipidemia, unspecified hyperlipidemia type Procedure Note - 04/29/2024 1:29 PM CSTThis note is in progress. [facility] [place] [address] [place] [address] Test Date: 2024-04-29 Pat Name: KRISTIE TORRES Department: 105 Room: Gender: Female Photographer Apprentice: maame : 1955 Requested By: NIMESH RIBERA Order Number: [id number] Reading MD: NIMESH RIBERA Measurements Intervals [place] Rate: 55 P: 61 CT: 124 QRS: 51 QRSD: 83 T: 33 QT: 453 QTc: 435 Interpretive Statements SINUS BRADYCARDIA LIPID PANEL Routine 02/22/2019 from Last 3 Months or Most Recently Relevant to Health Maintenance Results * LIPID PANEL (02/22/2019) CHOLESTEROL 146 HDL 66 40 - 60 TRIGLYCERIDES 30 LDL (CALCULATED) 74 02/22/2019 us Doc [facility] LABORATORY Final Result from Last 3 Months or Most Recently Relevant to Health Maintenance Insurance MEDICARE [facility] MEDICARE CINDY Care Teams Stain Sprayer Relationship Specialty Start Date End Date Merlin Fernandez MD [address] [place] [phone] PCP - General INTERNAL MEDICINE 01/01/19 Kaden Harley MD [address] [place] [address] [employer]el Publication Designer CARDIOVASCULAR DISEASE 01/01/19 Barbara Landeros APRN, PEOPLE MANAGER-C [address] [facility] [address] [place] [address] NURSE PRACTITIONER 03/28/21
--- OUTSIDE RECORDS SUMMARY | 2024-05-01 14:37 | XMS_ITS | Encounter Summary ---
Author Organization [facility] Address [address] [place] [address]. [place], [place] [phone] [place] [address] Care Team Providers Care Jewelry Racker Name Role Phone Merlin Fernandez MD Primary Care Provider [phone] Kaden Harley MD Unavailable Unavailformerly [facility] Barbara Weller APRN, FITNESS COACH-C Unavailable [phone] Encounter Details Date Type Department Care Team (Late Contact Info) Description 01/16/2019 Abstract [facility] [address] [place] [address] Kaden Harley MD Social History Tobacco Use Types Packs/Day Years [...] Sex Assigned at Female 04/29/2024 1:16 PM AGRICULTURAL CONSULTANT Legal Sex Female 2:54 PM CDT Gender Identity Not on file Sexual Orientation Not on file 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 Not on file Not on fi le documented as of this encounter Plan of Treatment Upcoming Encounters Date Type Department Care Team (Late Contact Info) Description 05/04/2025 1:00 PM AGRICULTURAL CONSULTANT Appointment [facility] [address] [place] [address] Barbara Landeros APRN, FITNESS COACH-C [address] [phone] 05/04/2025 2:00 PM AGRICULTURAL CONSULTANT Appointment [facility] Vascular Ultrasound - [facility] [address] [place] [address] Barbara Landeros APRN, FITNESS COACH-C [address] [phone] 05/04/2025 3:00 PM AGRICULTURAL CONSULTANT Office Visit [facility] el [address] [place] [phone] Barbara Landeros APRN, FITNESS COACH-C [address] [phone] documented as of this encounter Procedures Procedure Name Priority Date/Time Associated Diagnosis Comments AST/SGOT Routine 01/16/2019 Chest pain Hyperlipidemia LIPID PANEL Routine 01/16/2019 Chest pain Hyperlipidemia documented in this encounter Results * AST/SGOT (01/16/2019) Pathologist [facility] AST 16 01/16/2019 us Barbara Landeros APRN, FITNESS COACH-C LABORATORY Final Result * LIPID PANEL (01/16/2019) Pathologist [facility] CHOLESTEROL 250 HDL 82 TRIGLYCERIDES 62 CHOL/HDL RATIO 3.0 LDL (CALCULATED) 156 01/16/2019 Barbara Landeros APRN, FITNESS COACH-C LABORATORY Final Result documented in this encounter Visit Diagnoses Diagnosis Chest pain Chest pain, unspecified Hyperlipidemia Other and unspecified hyperlipidemia documented in this encounter Care Teams Jewelry Racker Relationship Specialty Start Date End Date Melrin Fernandez MD [address] [place] [phone] PCP - General INTERNAL MEDICINE 01/01/19 Kaden Harley MD [address] [place] [address] [place] [facility] CARDIOVASCULAR DISEASE 01/01/19 Brabara Landeros APRN, FITNESS COACH-C [address] [facility] [address] [place] [phone] NURSE PRACTITIONER 03/28/21 documented as of this encounter
--- OUTSIDE RECORDS SUMMARY | 2024-05-01 14:37 | XMS_ITS | Encounter Summary ---
Author Organization [facility] Address [address] [place] [address]. [place], [place] [address] [place] [address] Care Team Providers Care Cone Former Name Role Phone Merlin Fernandez MD Primary Care Provider [phone] Kaden Harley MD Un[facility] Barbara Weller APRN, EMT/DISPATCHER-C Unavailable [phone] Encounter Details Date Type Department Care Team (Late st Contact Info) Description 09/30/2019 Abstract [facility] [address] [place] [address] Abstract, Doc [facility] Social History Tobacco Use Types Packs/Day Years [...] Sex Assigned at Female 04/29/2024 1:16 PM CURRICULUM COACH Legal Sex Female 2:54 PM CDT Gender Identity Not on file Sexual Orientation Not on file 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 Non Invasive Cardiology - [facility] [address] [place] [address] Barbara Landeros APRN, EMT/DISPATCHER-C [address] [phone] 05/04/2025 2:00 PM CURRICULUM COACH Appointment [facility] Vascular Ultrasound - [facility] [address] [place] [address] Barbara Landeros APRN, EMT/DISPATCHER-C [address] [phone] 05/04/2025 3:00 PM CURRICULUM COACH Office Visit [facility] [address] [place] [phone] Barbara Landeros APRN, EMT/DISPATCHER-C [address] [phone] documented as of this encounter Procedures Procedure Name Priority Date/Time Associated Diagnosis Comments LIPID PANEL Routine 02/22/2019 ALT/SGPT Routine 02/22/2019 AST (ABSTRACTED LAB) Routine 01/16/2019 LIPID PANEL Routine 01/16/2019 documented in this encounter Results * ALT/SGPT (02/22/2019) ALT 31 02/22/2019 us Doc [facility] Abstract LABORATORY Final Result * LIPID PANEL (02/22/2019) CHOLESTEROL 146 HDL 66 40 - 60 TRIGLYCERIDES 30 LDL (CALCULATED) 74 02/22/2019 us Doc [facility] Abstract LABORATORY Final Result * AST (ABSTRACTED LAB) (01/16/2019) AST 16 01/16/2019 us Doc [facility] Abstract LAB-OUTSIDE/ABSTRACTED Final Result * LIPID PANEL (01/16/2019) CHOLESTEROL 250 0 - 200 HDL 82 TRIGLYCERIDES 62 CHOL/HDL RATIO 3.0 LDL (CALCULATED) 156 0 - 130 01/16/2019 us Doc [facility] Abstract LABORATORY Final Result documented in this encounter Visit Diagnoses Not on filedocumented in this encounter Care Teams Cone Former Relationship Specialty Start Date End Date Merlin Fernandez MD [address] [place] [address] PCP - General INTERNAL MEDICINE 01/01/19 Kaden Harley MD [address] [place] [address] [employer] National Sales Director CARDIOVASCULAR DISEASE 01/01/19 Barbara Landeros APRN, EMT/DISPATCHER-C [address] [facility] [address] [place] [phone] NURSE PRACTITIONER 03/28/21 documented as of this encounter
--- OUTSIDE RECORDS SUMMARY | 2024-05-01 14:37 | XMS_ITS | Encounter Summary ---
Author Organization [facility] Address [facility] [place] [place] [address] [place] [address] Care Team Providers Care Temporary Staff Accountant Name Role Phone Merlin Fernandez MD Primary Care Provider Kaden Harley MD Unavailable Unavailabl e Barbara Landeros APRN, DATA CODER OPERATOR-C Unavailable Reason for Visit * Reason Onset Date Comments Results 01/09/2019 Encounter Details Date Type Department Care Team (Late st Contact Info) Description 01/09/[address] 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 Uable to addend the report with ffr till Sunday. CTA show mild distal tapering of lad with distal small vessel disease. No significant leisions in major proximal and mid vessels. Distal LAD ffr 0.78. Will sign report with ffr addend when I get back. documented in this encounter Plan of Treatment Upcoming Encounters Date Type Department Care Team (Late st Contact Info) Description 05/04/2025 1:00 PM BUTTER FAT TESTER Appointment [facility] Non Invasive Cardiology - [facility] [address] [place] [address] Barbara Landeros APRN, DATA CODER OPERATOR-C [address] [phone] 05/04/2025 2:00 PM BUTTER FAT TESTER Appointment [facility] Vascular Ultrasound - [facility] [address] [place] [address] Barbara Landeros APRN, DATA CODER OPERATOR-C [address] [phone] [phone] 05/04/2025 3:00 PM BUTTER FAT TESTER [facility] [address] [place] [address] [phone] Barbara Landeros APRN, DATA CODER OPERATOR-C [address] [phone] documented as of this encounter Visit Diagnoses Not on filedocumented in this encounter Care Teams Temporary Staff Accountant Relationship Specialty Start Date End Date Merlin Fernandez MD [address] [place] [phone] PCP - General INTERNAL MEDICINE 01/01/19 Kaden Harley MD [address] [place] [address] [employer] Web Marketing Assistant CARDIOVASCULAR DISEASE 01/01/19 Barbara Landeros APRN, DATA CODER OPERATOR-C [address] [facility] [address] [place] [phone] NURSE PRACTITIONER 03/28/21 documented as of this encounter
--- OUTSIDE RECORDS SUMMARY | 2024-05-01 14:37 | XMS_ITS | Encounter Summary ---
Author Organization [facility] Address [address] [place] [address]. [place], [place] [address] [place] [address] Care Team Providers Care Information Management Specialist Name Role Phone Merlin Fernandez MD Primary Care Provider [phone] Kaden Harley MD Un[facility] Barbara Weller APRN, SHANK PIECE TACKER-C Unavailable [phone] Encounter Details Date Type Department Care Team (Late Contact Info) Description 01/01/2019 Abstract [facility] [address] [place] [phone] Abstract, Doc [facility] Social History Tobacco Use [...] Sex Assigned at Female 04/29/2024 1:16 PM BARREL RIFLER HOOK Legal Sex Female 2:54 PM CDT Gender Identity Not on file Sexual Orientation Not on file 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 Not on fi le documented as of this encounter Plan of Treatment Upcoming Encounters Date Type Department Care Team (Late Contact Info) Description 05/04/2025 1:00 PM BARREL RIFLER HOOK Appointment [facility] Non Invasive Cardiology - [facility] [address] [place] [phone] Barbara Landeros APRN, SHANK PIECE TACKER-C [address] [phone] 05/04/2025 2:00 PM BARREL RIFLER HOOK Appointment [facility] Vascular Ultrasound - [facility] [address] [place] [address] Barbara Landeros APRN, SHANK PIECE TACKER-C [address] [phone] 05/04/2025 3:00 PM BARREL RIFLER HOOK Office Visit [facility] [address] [place] [phone] Barbara Landeros APRN, SHANK PIECE TACKER-C [address] [phone] documented as of this encounter Visit Diagnoses Not on filedocumented in this encounter Care Teams Information Management Specialist Relationship Specialty Start Date End Date Merlin Fernandez MD [address] [place] [address] PCP - General INTERNAL MEDICINE 01/01/19 Kaden Harley MD [address] [place] [address] [employer] CARDIOVASCULAR DISEASE 01/01/19 Barbara Landeros APRN, SHANK PIECE TACKER-C [address] [phone] NURSE PRACTITIONER 03/28/21 documented as of this encounter
--- OUTSIDE RECORDS SUMMARY | 2024-05-01 14:38 | XMS_ITS | Clinical Summary ---
Author Organization [facility] Address [address] [place] [address] Care Team Providers Care Sweet Pickle Maker Name Role Phone Merlin Fernandez MD Primary Care Provider [phone] Allergies Active Allergy Reactions Criticality Noted Date Comments Amoxicillin-Pot Clavulanate Vomiting Low 01/02/20 19 Cephalexin Itching Low 01/01/2019 Erythromycin Unknown 01/01/2019 Medications aspirin 81 mg enteric coated tablet Take 81 mg by mouth daily Active atorvastatin (LIPITOR) 40 mg tablet Take 40 mg by mouth daily 07/11/2020 Active metoprolol XL (TOPROL-XL) 25 mg extended release tablet Take 25 mg by mouth every morning 08/29/2020 Active Active Problems Problem Noted Date Diagnosed Date Breast tenderness in female 09/30/2020 Discharge from left nipple 09/30/2020 Immunizations Name Administration Dates Next Due Influenza, Quadrivalent, Spl it, Preservative Free, Intramuscular 01/02/2020,03/04/2018,01/28/2016 Influenza, Trivalent, Split, Preservative Free, Intradermal 03/04/2012 Pfizer SARS-CoV-2 Monovalent Vaccination (12+ Yrs) PURPLE 06/18/2020,05/28/2020 Pneumococcal Conjugate PCV 13 11/22/2018 Pneumococcal Polysaccharide PPV23 10/15/2019 ZOSTER LIVE 09/11/2013 Surgical History Surgery Date Site/Laterality Comments SECTION [id number] &[id number] APPENDECTOMY 04/09/1967 - 04/08/1968 Medical History Medical History Date Comments Hypertension Osteoporosis Family History Medical History Relation Name Comments Lymphoma Father Breast cancer Mother Multiple myeloma Mother Uterine cancer Mother's Sister Relation Name Status Comments Father Other 74 diagnosed Mother Other 70 diagnosed br east cancer, 81 multiple myloma Mother's Sister Other diagnosed in her 70's Social History Tobacco Use Types Packs/Day Years Used Date Smoking Tobacco: Never Smokeless Tobacco: Never Personal Safety Answer Date Recorded Getting School Help Needed Not on file 06/23 Comments Unknown Sex and Gender Information Value Date Recorded Sex Assigned at Not on file Legal Sex Female 1:37 PM CDT Gender Identity Not on file Sexual Orientation Not on file Obstetrics History Last Filed Vital Signs Vital Sign Reading Time Taken Comments Blood Pressure - - Pulse - - Temperature - - Respiratory Rate - - Oxygen Saturation - - Inhaled Oxygen Concentration - - Weight 64.9 kg (143 lb 1.3 oz) 11/11/2020 12:42 PM CDT Height 165.1 cm (5' 5 ) 11/11/2020 12:42 PM CDT Body Mass Index 23.81 11/11/2020 12:42 PM CDT Plan of Treatment Health Maintenance Due Date Last Done Comments Colon Cancer Screening-Colonoscopy 1955 Depression Screening 1955 Fall Risk Assessment 1955 Hepatitis C Screening 1955 Osteoporosis Screening-Bone Density Scan 1955 DTaP/Tdap/Td Vaccine (1 - Tdap) 1964 Hepatitis B Screening 08/10/1971 Zoster Vaccine (2 of 3) 11/06/2013 09/11/2013 Well Visit 65+ 2018 Breast Cancer Screening-Mammogram 09/30/2021 021 Covid-19 Vaccine (3 - 2023-2 5 season) 2023 06/18/2020, 05/28/2020 Influenza Vaccine (#1) 2023 0, 03/04/2018, 01/28/2016, Additional history exists Pneumococcal vaccine 65+ Completed 10/15/2019, 11/07 Procedures Procedure Name Priority Date/Time Associated Diagnosis Comments DIAGNOSTIC MAMMOGRAM BILATERAL W IGLESIA Schedule Routine, Read Routine (OP Routine) 09/30/2020 1:03 PM CDT Breast tenderness in female from Last 3 Months or Most Recently Relevant to Health Maintenance Results * Diagnostic Mammogram Bilateral W Iglesia (09/30/2020 1:03 PM CDT) Anatomical Region Laterality Modality Breast Bilateral Mammography 09/30/2020 1:48 PM CDT Impressions 09/30/2020 1:48 PM CDT 1. ??No evidence of malignancy in EITHER breast. 2. ??No mammographic or sonographic correlate for area of clinical concern in LEFT breast. In the absence of imaging findings, any decision for further intervention should be based on the clinical assessment. OVERALL FINAL ASSESSMENT: BI-RADS Category 1: Negative. Annual screening mammography is recommended. Electronically signed by: Lolis Spence M.D. Narrative 09/30/2020 1:48 PM CDT EXAMINATION: BILATERAL DIGITAL DIAGNOSTIC MAMMOGRAM INCLUDING CAD AND BILATERAL DIGITAL BREAST TOMOSYNTHESIS; LEFT BREAST SONOGRAM HISTORY: 65-year-old woman who presents with new LEFT breast spontaneous clear nipple discharge for the past 10 months. ??The patient also notes that she has focal left breast pain. ??2 sites of palpable abnormalities were noted within the left breast, one at the site of pain and one closer to the nipple. ??The patient is currently due for her bilateral annual mammogram. COMPARISON: 11/11/2019 and priors dating back to 2017 TECHNIQUE: ?? Full field digital mammographic views of BOTH breasts were performed, including computer aided detection (CAD) and BILATERAL digital breast tomosynthesis (DBT). ??Directed ultrasound evaluation of the LEFT breast was performed. BREAST PARENCHYMAL COMPOSITION: There are scattered areas of fibroglandular density. MAMMOGRAM FINDINGS: There is no mammographic abnormality noted at the site of palpable concern in the LEFT breast. ??There is no new suspicious abnormality in either breast. ?? SONOGRAM FINDINGS: Targeted sonographic images were obtained within the subareolar LEFT breast and in the LEFT breast at the 1:30 position 7 cm from the nipple in the area of pain and in the LEFT breast at the 3 o'clock position 3 cm from the nipple at the site of palpable abnormality. There is no suspicious cystic or solid mass identified suggestive of malignancy. Procedure Note Lolis Spence MD - 09/30/2020 EXAMINATION: BILATERAL DIGITAL DIAGNOSTIC MAMMOGRAM INCLUDING CAD AND BILATERAL DIGITAL BREAST TOMOSYNTHESIS; LEFT BREAST SONOGRAM HISTORY: 65-year-old woman who presents with new LEFT breast spontaneous clear nipple discharge for the past 10 months. The patient also notes that she has focal left breast pain. 2 sites of palpable abnormalities were noted within the left breast, one at the site of pain and one closer to the nipple. The patient is currently due for her bilateral annual mammogram. COMPARISON: 11/11/2019 and priors dating back to 2017 TECHNIQUE: Full field digital mammographic views of BOTH breasts were performed, including computer aided detection (CAD) and BILATERAL digital breast tomosynthesis (DBT). Directed ultrasound evaluation of the LEFT breast was performed. BREAST PARENCHYMAL COMPOSITION: There are scattered areas of fibroglandular density. MAMMOGRAM FINDINGS: There is no mammographic abnormality noted at the site of palpable concern in the LEFT breast. There is no new suspicious abnormality in either breast. SONOGRAM FINDINGS: Targeted sonographic images were obtained within the subareolar LEFT breast and in the LEFT breast at the 1:30 position 7 cm from the nipple in the area of pain and in the LEFT breast at the 3 o'clock position 3 cm from the nipple at the site of palpable abnormality. There is no suspicious cystic or solid mass identified suggestive of malignancy. IMPRESSION: 1. No evidence of malignancy in EITHER breast. 2. No mammographic or sonographic correlate for area of clinical concern in LEFT breast. In the absence of imaging findings, any decision for further intervention should be based on the clinical assessment. OVERALL FINAL ASSESSMENT: BI-RADS Category 1: Negative. Annual screening mammography is recommended. Electronically signed by: Lolis Spence M.D. Bethanie Miranda NP IMG MAMMO PROCEDURES Fin al Result from Last 3 Months or Most Recently Relevant to Health Maintenance Insurance MEDICARE COMMERCIAL GENERIC Care Teams Sweet Pickle Maker Relationship Specialty Start Date End Date Merlin Fernandez MD [address] [place] [address] PCP - General Internal Medicine 09/07/20
--- OUTSIDE RECORDS SUMMARY | 2024-05-01 14:38 | XMS_ITS | Referral Summary ---
Author Organization [facility] Address [address] [place] [address] Care Team Providers Care Camera Repairer Name Role Phone Merlin Fernandez MD Primary Care Provider [phone] Allergies Active Allergy Reactions Criticality Noted Date [...] Pneumococcal Polysaccharide PPV23 10/15/2019 ZOSTER LIVE 09/11/2013 Social History Tobacco Use Types Packs/Day Years Used Date Smoking Tobacco: Never Smokeless Tobacco: Never Personal Safety Answer Date Recorded Getting School Help Needed Not on file 06/23 Comments Unknown Sex and Gender Information Value Date Recorded Sex Assigned at Not on file Legal Sex Female 1:37 PM CDT Gender Identity Not on file Sexual Orientation Not on file Last Filed Vital Signs Vital Sign Reading [...] 11/11/2020 12:42 PM CDT Plan of Treatment Not on file Procedures Procedure Name Priority Date/Time Associated Diagnosis [...] signed by: Lolis Spence M.D. Bethanie Miranda TACKER OFF IMG MAMMO PROCEDURES Fin al Result from Last 3 Months or Most Recently Relevant to Health Maintenance Insurance MEDICARE COMMERCIAL GENERIC Care Teams Camera Repairer Relationship Specialty Start Date End Date Merlin Fernandez MD [address] [place] [address] PCP - General Internal Medicine 09/07/20
== END 2024-04-28 18:12 | disposition home or self-care (01) ==
PROVIDERS: Emergency Provider Family Medicine; PCP Internal Medicine
DX: S79.912A Unspecified injury of left hip, initial encounter (principal); I10 Essential (primary) hypertension; X58.XXXA Exposure to other specified factors, initial encounter
CPT/HCPCS: 73502; 96372; 99283; J1885

== ENCOUNTER 2024-10-20 13:00 | Outpatient (CLI) | payer MEDICARE, SELFPAY ==
--- NOTE | ~2024-10-20 | US_ITS ---
EXAMINATION: US carotid duplex BI DATE: 10/20/2024 13:59 INDICATION: Bilateral carotid bruits TECHNIQUE: Grayscale, color Doppler, and pulsed Doppler images of the cervical carotid arteries were obtained. The degree of vessel stenosis is placed in one of the following categories: normal, <50%, 5 0-69%, >=70% but less than near-occlusion, near-occlusion, or total occlusion. Note that percent sten osis relative to normal distal artery lumen diameter is indirectly measured from velocity measurement s as described by Lazarus, et al. Radiology 2003; 229:340-346. COMPARISON: None. FINDINGS: RIGHT: The right common carotid artery (CCA) peak systolic velocity (PSV) is 120 cm/s. The right internal ca rotid artery (ICA) PSV is 91 cm/s. The right ICA end-diastolic velocity (EDV) is 24 cm/s. The right I CA/CCA PSV ratio is 0.8. Grayscale and color Doppler images yield an estimate of <50% diameter reduct ion from plaque in the ICA. The external carotid artery (ECA) PSV is 89 cm/s. There is antegrade flow in the right vertebral artery. LEFT: The left CCA PSV is 105 cm/s. The left ICA PSV is 75 cm/s. The left ICA EDV is 26 cm/s. The left ICA/ CCA PSV ratio is 0.7. Grayscale and color Doppler images yield an estimate of <50% diameter reduction from plaque in the ICA. The ECA PSV is 86 cm/s. There is antegrade flow in the left vertebral artery . IMPRESSION: 1. <50% stenosis in the right internal carotid artery. 2. <50% stenosis in the left internal carotid artery. Reviewed, dictated and finalized at location A.
== END 2024-10-20 13:01 | disposition home or self-care (01) ==
LOC: CHSIMG 13:03
PROVIDERS: PCP Internal Medicine; Visit Provider Internal Medicine
DX: R09.89 Other specified symptoms and signs involving the circulatory and respiratory systems (principal); I65.23 Occlusion and stenosis of bilateral carotid arteries
CPT/HCPCS: 93880

== ENCOUNTER 2024-10-28 12:45 | Outpatient (CLI) | payer MEDICARE, SELFPAY ==
--- OUTSIDE RECORDS SUMMARY | 2024-10-28 12:49 | XMS_ITS | Clinical Summary ---
Author Organization [facility] Address [address] [place] [phone] Care Team Providers Care Asphalt Coater Name Role Phone Merlin Fernandez MD Primary Care Provider [phone] Allergies Active Allergy Reactions Criticality Noted Date [...] 09/30/2020 Discharge from left nipple 09/30/2020 Immunizations Immunization Administration Dates Next Due Influenza, Quadrivalent, Spl [...] 12:42 PM CDT Height 165.1 cm (5' 5) 11/11/2020 12:42 PM CDT Body Mass Index [...] 5 season) 2023 06/18/2020, 05/28/2020 Influenza Vaccine (Season Ended) 2024 01/02/2020, 03/04/2018, 01/28/2016, Additional history exists Pneumococcal vaccine [...] CDT Impressions 09/30/2020 1:48 PM CDT 1. No evidence of malignancy in EITHER [...] Maintenance Insurance MEDICARE [employer] Care Teams Asphalt Coater Relationship Specialty Start Date End Date Merlin Fernandez MD [address] [place] [address] PCP - General Internal Medicine 09/07/20
--- OUTSIDE RECORDS SUMMARY | 2024-10-28 12:49 | XMS_ITS | Clinical Summary ---
Author Organization [facility] Address [address] [place] [address] Care Team Providers Care Database Reporting Consultant Name Role Phone Merlin Fernandez MD Primary Care Provider [phone] Kaden Harley MD Unavailable Barbara Landeros APRN, VP PRODUCT MARKETING-C Unavailable Allergies Active Allergy Reactions Criticality Noted Date Comments Amoxicillin-Pot Clavulanate Vomiting 01/02/20 19 Erythromycin Unknown 01/01/2019 Cephalexin Itching 01/01/2019 Medications aspirin EC (ECOTRIN) 81 MG tablet Take 1 tablet (81 mg total) by mouth daily. Active pravastatin (PRAVACHOL) 20 MG tablet Take 1 tablet (20 mg total) by mouth nightly. 2 Active vitamin D3, cholecalcifero l, 1000 UNIT Tab tablet Take 1 tablet (25 mcg total) by mouth daily. Active zoledronic acid (RECLAST) 5 MG/100ML Solution infusion Inject 100 mLs (5 mg total) into the vein see administration instructions. 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 Not on file Not on fi le Last Filed Vital Signs Vital Sign Reading Time Taken Comments Blood Pressure 120/72 04/29/2024 1:32 PM RACING SECRETARY Pulse 55 04/29/2024 1:32 PM RACING SECRETARY Temperature - - Respiratory Rate 16 04/29/2024 1:32 PM RACING SECRETARY Oxygen Saturation 97% 04/29/2024 1:32 PM RACING SECRETARY Inhaled Oxygen Concentration - - Weight 63.5 kg (140 lb) 04/29/2024 1:32 PM RACING SECRETARY Height 165.1 cm (5' 5) 04/29/2024 1:32 PM RACING SECRETARY Body Mass Index 23.3 04/29/2024 1:32 PM RACING SECRETARY Plan of Treatment Upcoming Encounters Date Type Department Care Team (Late st Contact Info) Description 05/04/2025 1:00 PM RACING SECRETARY Appointment [facility] Non Invasive Cardiology - [place] [address] [place] [address] Barbara Landeros APRN, VP PRODUCT MARKETING-C [address] [phone] 05/04/2025 2:00 PM RACING SECRETARY Appointment [facility] Vascular Ultrasound - [place] [address] [place] [address] Barbara Landeros APRN, VP PRODUCT MARKETING-C [address] [phone] 05/04/2025 3:00 PM RACING SECRETARY Office Visit [facility] eld [address] [place] [address] Barbara Landeros, CERTIFIED EMERGENCY VEHICLE TECHNICIAN, VP PRODUCT MARKETING-C [address] [facility] [address] [place] [address] Health Maintenance Due Date Last Done Comments ASCVD Statin 1955 Colorectal Cancer Screening Colonoscopy (10 Years) 1955 Hepatitis C 08/10/1971 DTaP, Tdap and Td Vaccines ( 1 - Tdap) 1972 RSV Immunization or 60+ Years (1 - Risk 60-74 years 1-dose series) 2013 Zoster Vaccines (2 of 3) 11/06/2013 09/11/2013 Annual Medicare Wellness Visit 2018 Dexa Scan (General) 2018 ASCVD LDL 02/23/2020 02/22/2019, 01/16/2019, 01/16/2019 Mammogram Screening 09/30/2022 09/30/2020 COVID-19 Vaccine (3 - 2023-2 5 season) 2023 06/18/2020, 05/28/2020 Pneumococcal Vaccine: 50+ Years Completed 10/15/2019, 11/22/2018 Meningococcal B Vaccine Aged Out No l onger eligible based on patient's age to complete this topic Meningococcal Vaccine Aged Out No marino clarita eligible based on patient's age to complete this topic RSV Immunizations Under 20 Months Aged Out No longer eligible b ased on patient's age to complete this topic Procedures Procedure Name Priority Date/Time Associated Diagnosis Comments LIPID PANEL Routine 02/22/2019 from Last 3 Months or Most Recently Relevant to Health Maintenance Results * LIPID PANEL (02/22/2019) CHOLESTEROL 146 HDL 66 40 - 60 TRIGLYCERIDES 30 LDL (CALCULATED) 74 02/22/2019 us Doc [facility] LABORATORY Final Result from Last 3 Months or Most Recently Relevant to Health Maintenance Insurance MEDICARE [facility] MEDICARE [facility] Care Teams Database Reporting Consultant Relationship Specialty Start Date End Date Merlin Fernandez MD [address] [place] [address] PCP - General INTERNAL MEDICINE 01/01/19 Kaden Harley MD [address] [place] [address] [place] Carpenter'S Assistant CARDIOVASCULAR DISEASE 01/01/19 Barbara Landeros, CERTIFIED EMERGENCY VEHICLE TECHNICIAN, VP PRODUCT MARKETING-C [address] [facility] [address] [place] [address] NURSE PRACTITIONER 03/28/21
--- OUTSIDE RECORDS SUMMARY | 2024-10-28 12:49 | XMS_ITS | Encounter Summary ---
Author Organization [facility] Address [facility] [place] [address] Care Team Providers Care Farm Truck Driver Name Role Phone Merlin Fernandez MD Primary Care Provider [phone] Kaden Harley MD Unavailable Barbara Landeros APRN, DIRECTOR OF OPERATIONS SUPPORT-C Unavailable Encounter Details Date Type Department Care Team (Late Contact Info) Description 01/16/2019 Abstract [facility] [address] [place] [address] Kaden Harley MD [address] [place] [address] Social History Tobacco Use Types Packs/Day Years [...] Sex Assigned at Female 04/29/2024 1:16 PM MORNING SHOW PRODUCER Legal Sex Female 2:54 PM CDT Gender Identity Not on file Sexual Orientation Not on file 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 Not on file Not on fi le documented as of this encounter Plan of Treatment Upcoming Encounters Date Type Department Care Team (Late Contact Info) Description 05/04/2025 1:00 PM MORNING SHOW PRODUCER Appointment [facility] Non Invasive Cardiology - [facility] [address] [place] [address] Barbara Landeros APRN, DIRECTOR OF OPERATIONS SUPPORT-C [address] [phone] 05/04/2025 2:00 PM MORNING SHOW PRODUCER Appointment [facility] Vascular Ultrasound - [facility] [address] [place] [address] Barbara Landeros APRN, DIRECTOR OF OPERATIONS SUPPORT-C [address] [phone] 05/04/2025 3:00 PM MORNING SHOW PRODUCER Office Visit [facility] [address] [place] [phone] Barbara Landeros APRN, DIRECTOR OF OPERATIONS SUPPORT-C [address] [phone] documented as of this encounter Procedures Procedure Name Priority Date/Time Associated Diagnosis Comments AST/SGOT Routine 01/16/2019 Chest pain Hyperlipidemia LIPID PANEL Routine 01/16/2019 Chest pain Hyperlipidemia documented in this encounter Results * AST/SGOT (01/16/2019) AST 16 01/16/2019 Barbara Landeros APRN, DIRECTOR OF OPERATIONS SUPPORTPreeti LABORATORY Final Result * LIPID PANEL (01/16/2019) CHOLESTEROL 250 HDL 82 TRIGLYCERIDES 62 CHOL/HDL RATIO 3.0 LDL (CALCULATED) 156 01/16/2019 Barbara Landeros APRN, DIRECTOR OF OPERATIONS SUPPORT-C LABORATORY Final Result documented in this encounter Visit Diagnoses Diagnosis Chest pain Chest pain, unspecified Hyperlipidemia Other and unspecified hyperlipidemia documented in this encounter Care Teams Farm Truck Driver Relationship Specialty Start Date End Date Merlin Fernandez MD [address] [place] [address] PCP - General INTERNAL MEDICINE 01/01/19 Kaden Harley MD [address] [place] [address] [place] Manager Of Merchandising CARDIOVASCULAR DISEASE 01/01/19 Barbara Landeros APRN, DIRECTOR OF OPERATIONS SUPPORT-C [address] [facility] [address] [place] [address] NURSE PRACTITIONER 03/28/21 documented as of this encounter
--- OUTSIDE RECORDS SUMMARY | 2024-10-28 12:49 | XMS_ITS | Encounter Summary ---
Author Organization [facility] Address [address] [place] [address] Care Team Providers Care Tower Attendant Name Role Phone Merlin Fernandez MD Primary Care Provider [phone] Kaden Harley MD Unavailable [phone] Barbara Landeros APRN, PRINTED CIRCUIT LAYOUT TAPER-C Unavailable [phone] Encounter Details Date Type Department Care Team (Late st Contact Info) Description 09/30/2019 Abstract [facility] [address] [place] [address] Abstract, Doc [facility] Social History [...] Sex Assigned at Female 04/29/2024 1:16 PM DELICATESSEN SLICER Legal Sex Female 2:54 PM CDT Gender Identity Not on file Sexual Orientation Not on file 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 Not on file Not on fi le documented as of this encounter Plan of Treatment Upcoming Encounters Date Type Department Care Team (Late st Contact Info) Description 05/04/2025 1:00 PM DELICATESSEN SLICER Appointment [facility] Non Invasive Cardiology - [place] [address] [place] [address] Barbara Landeros APRN, PRINTED CIRCUIT LAYOUT TAPER-C [address] [phone] 05/04/2025 2:00 PM DELICATESSEN SLICER Appointment [facility] Vascular Ultrasound - [facility] [address] [place] [address] Barbara Landeros APRN, PRINTED CIRCUIT LAYOUT TAPER-C [address] [phone] 05/04/2025 3:00 PM DELICATESSEN SLICER [facility] [address] [place] [phone] Barbara Landeros APRN, PRINTED CIRCUIT LAYOUT TAPER-C [address] [phone] documented as of this encounter Procedures Procedure [...] on filedocumented in this encounter Care Teams Tower Attendant Relationship Specialty Start Date End Date Merlin Fernandez MD [address] [place] [address] PCP - General INTERNAL MEDICINE 01/01/19 Kaden Harley MD [address] [place] [address] [place] Manager Integrated CARDIOVASCULAR DISEASE 01/01/19 Barbara Landeros APRN, PRINTED CIRCUIT LAYOUT TAPER-C [address] [facility] [address] [place] [phone] NURSE PRACTITIONER 03/28/21 documented as of this encounter
--- OUTSIDE RECORDS SUMMARY | 2024-10-28 12:49 | XMS_ITS | Encounter Summary ---
Author Organization [facility] Address [facility] [place] [address] Care Team Providers Care Book Or Script Editor Name Role Phone Merlin Fernandez MD Primary Care Provider [phone] Kaden Harley MD Unavailable [phone] Barbara Landeros APRN SALES AND MERCHANDISING REPRESENTATIVE-C Unavailable [phone] Reason for Visit * Reason Onset Date Comments Results 01/09/2019 Encounter Details Date Type Department Care Team (Late st Contact Info) Description 01/09/[address] 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 Non Invasive Cardiology - [facility] [address] [place] [address] Barbara Landeros APRN, SALES AND MERCHANDISING REPRESENTATIVE-C [address] [phone] 05/04/2025 2:00 PM PROFESSOR OF LITERATURE Appointment [facility] Vascular Ultrasound - [facility] [address] [place] [address] Barbara Landeros APRN, SALES AND MERCHANDISING REPRESENTATIVE-C [address] [phone] 05/04/2025 3:00 PM PROFESSOR OF LITERATURE [facility] [address] [place] [address] [phone] Barbara Landeros APRN, SALES AND MERCHANDISING REPRESENTATIVE-C [address] [phone] documented as of this encounter Visit Diagnoses Not on filedocumented in this encounter Care Teams Book Or Script Editor Relationship Specialty Start Date End Date Merlin Fernandez MD [address] [place] [address] PCP - General INTERNAL MEDICINE 01/01/19 Kaden Harley MD [address] [place] [phone] [place] Supervisor CARDIOVASCULAR DISEASE 01/01/19 Barbara Landeros, COURTNEY, SALES AND MERCHANDISING REPRESENTATIVE-C [address] [facility] [address] [place] [address] NURSE PRACTITIONER 03/28/21 documented as of this encounter
--- OUTSIDE RECORDS SUMMARY | 2024-10-28 12:49 | XMS_ITS | Encounter Summary ---
Author Organization [facility] Address [facility] [place] [address] Care Team Providers Care Chain Offbearer Name Role Phone Merlin Fernandez MD Primary Care Provider [phone] Kaden Harley MD Unavailable [phone] Barbara Landeros APRN, FAMILY PRACTICE NURSE PRACTITIONER-C Unavailable [phone]- [phone] Encounter Details Date Type Department Care Team (Late Contact Info) Description 01/01/2019 Abstract [facility] [address] [place] [address] Abstract, Doc [facility] Social History Tobacco [...] Sex Assigned at Female 04/29/2024 1:16 PM ACCOUNTANT COST Legal Sex Female 2:54 PM CDT Gender Identity Not on file Sexual Orientation Not on file 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 Not on fi le documented as of this encounter Functional Status documented as of this encounter Plan of Treatment Upcoming Encounters Date Type Department Care Team (Late Contact Info) Description 05/04/2025 1:00 PM ACCOUNTANT COST Appointment [facility] Non Invasive Cardiology - [facility] [address] [place] [address] Barbara Landeros APRN, FAMILY PRACTICE NURSE PRACTITIONER-C [address] [phone] 05/04/2025 2:00 PM ACCOUNTANT COST Appointment [facility] V[facility] Ultrasound - [facility] [address] [place] [address] Barbara Landeros APRN, FAMILY PRACTICE NURSE PRACTITIONER-C [address] [phone] 05/04/2025 3:00 PM ACCOUNTANT COST Office Visit [facility] [address] [place] [address] Barbara Landeros APRN, FAMILY PRACTICE NURSE PRACTITIONER-C [address] [phone] documented as of this encounter Visit Diagnoses Not on filedocumented in this encounter Care Teams Chain Offbearer Relationship Specialty Start Date End Date Merlin Fernandez MD [address] [place] [address] PCP - General INTERNAL MEDICINE 01/01/19 Kaden Harley MD [address] [place] [phone] [place] Laminating Machine Operator CARDIOVASCULAR DISEASE 01/01/19 Barbara Landeros APRN, FAMILY PRACTICE NURSE PRACTITIONER-C [address] [phone] NURSE PRACTITIONER 03/28/21 documented as of this encounter
--- OUTSIDE RECORDS SUMMARY | 2024-10-28 12:49 | XMS_ITS | Referral Summary ---
Author Organization [facility] Address [address] [place] [address] Care Team Providers Care Cot Assembler Name Role Phone Merlin Fernandez MD Primary Care Provider [phone] Allergies Active Allergy Reactions Criticality Noted Date [...] Recently Relevant to Health Maintenance Insurance MEDICARE [facility] Address: [address] [address] COMMERCIAL GENERIC Care Teams Cot Assembler Relationship Specialty Start Date End Date Merlin Fernandez MD [address] [place] [address] PCP - General Internal Medicine 09/07/20
--- OUTSIDE RECORDS SUMMARY | 2024-10-28 12:49 | XMS_ITS ---
Author Organization [facility] Address [address] [place], [place] [address] Care Team Providers Care Taping Foreman Name Role Phone SAMEERA WYNN Unavailable [phone] Merlin Fernandez Unavailable Unavailable INKOS OLIVA Unavailable [phone] Allergies Allergen (clinical drug ingredient) Drug/Non Drug [...] Medicationciclopirox 80 MG/ML Topical Solution *Reorder from Matchbook for eRx and Interaction Alerts* 04/05/20 12 Not-Takin g cyclobenzaprine hydrochloride 10 MG Oral Tablet ORAL cyclobenzaprine hydrochloride 10 MG Oral TabletOriginal Medicationcyclobenzaprine hydrochloride 10 MG Oral Tablet *Reorder from Matchbook for eRx and Interaction Alerts* 04/03/20 12 Not-Takin g Aspirin 81 81 MG 1 tablet Orally Once a day Active Metoprolol Succinate 25 MG 1 capsule Orally Once a day Active Vital Signs Height 65.00 in 08/28/2024 Weight 136 lbs 08/28/2024 BMI 22.63 kg/m2 08/28/2024 Height-cm 165.10 cm 08/28/2024 Weight-kg 61.69 kg 08/28/2024 Encounters Encounter Location Date Provider Diagnosis [address] [id number] 08/28/2024 NIKOS OLIVA Onychomycosis B35.1 ; Pain in right toe(s) M79.674 ; Pain in left toe(s) M79.675 ; Atherosclerosis of [place] arteries of extremities with intermittent claudication, bilateral [...] toe(s) (ICD-10 - M79.675) 08/28/2024 Atherosclerosis of [place] arteries of extremities with intermittent claudication, bilateral [...] M20.41) [facility] New Balance orthotics and Consider pkks-etk-ppqolok orthotics Plan Of Treatment Treatment Notes Assessment Notes Onychomycosis NAIL DEBRIDEMENT: Na ils 1-5 Bilateral were debrided extensively with nail nippers and emery board, reducing length and girth to pink healthy tissue with any subungual debris and necrotic tissue removed Atherosclerosis of [place] ar teries of extremities with intermittent claudication, [...] ot [facility] New Balance orthotics and Consider fvrs-spn-ibqvduy orthotics Next Appt Details Provider Name:NIKOS OROZCO, 12/18/2024 12:50:00 PM, [address] [place] [address], [phone], Progress Notes * KHOA PLAZA LaurentDOB:[birth year] (69 yo F)Acc No.[id number]:08/28/2024 Patient: KHOA TRINH Provider: Vidhi OLIVA :1955 A ge:69 Y S ex:Female Date:08/28/2024 Address:[address] [place], [place] [id number] Subjective: * Chief Complaints: * 1 . [...] nails way in the past. , MA: [facility]. * ROS: G eneral / Constitutional: Patient [...] Medicationciclopirox 80 MG/ML Topical Solution *Reorder from Matchbook for eRx and Interaction Alerts*, Not-Taking cyclobenzaprine hydrochloride 10 MG Oral Tablet ORAL , Notes to Pharmacist: cyclobenzaprine hydrochloride 10 MG Oral TabletOriginal Medicationcyclobenzaprine hydrochloride 10 MG Oral Tablet *Reorder from Matchbook for eRx and Interaction Alerts*, Medication List [...] here is normal gait noted. N eurologic: [place] 5.07 monofilament I ntact protective sensation via [...] - M79.675 4 . A therosclerosis of [place] arteries of extremities with intermittent claudication, bilateral legs - I70.213 5 . 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 O ther hammer toe(s) (acquired), right foot - M20.41 Plan: * Treatment: 2. A therosclerosis of [place] arteries of extremities with intermittent claudication, bilateral [...] Notes: CHange New Balance orthotics and Consider fnhr-maq-djogvtb orthotics * Immunizations: Immunization record has been reviewed and updated. * Procedure Codes: 1 1056 TRIM SKIN LESIONS, 2 TO 4, Modifiers: Q8 , 09945 DEBRIDE NAIL, 6 OR MORE, Modifiers: 59 , Q8 * Billing Information: * Visit Code: * Procedure Codes: 72583 TRIM SKIN LESIONS, 2 TO 4. Modifiers: Q8 57400 DEBRIDE NAIL, 6 OR MORE. Modifiers: 59, Q8 * Electronic signature of MICHELE OLIVA DPM on 10/28/2024 at 12:49 PM CDT Sign off status: Pending * Provider: Vidhi OLIVA Date: 0 08/28/2024 Generated for Hernan khoury/Christel/Amber on: 0 10/28/2024 12:49 PM CDT History and Physical Notes * HPI [...] nails way in the past. , MA: [facility] Examination Category Sub-Category Detail Notes Category Not es Dermatologic Skin findings: bilateral, Skin is thin, atrophic and lacking pedal hair. Nail pathology: Nails 1st digit bila teral are elongated, thick, discolored, and dystrophic with subungual debris. They are painful to palpation Hyperkeratotic Skin Lesion There is no e vidence of hyperkeratosis Neurologic [place] 5.07 monofilamen t Intact protective sensation via [...]
--- OUTSIDE RECORDS SUMMARY | 2024-10-28 12:50 | XMS_ITS | Patient Health Record ---
Author Organization [facility] Address [address] [place], [place] [address] Care Team Providers Care Life Insurance Agent Name Role Phone SAMEERA WYNN Unavailable [phone] Merlin Fernandez Unavailable Unavailable NIKOS OLIVA Unavailable [phone] Allergies Allergen (clinical drug ingredient) Drug/Non Drug Allergy documented on EMR Reaction Allergy Type Onset Date Status amoxicillin / clavulanate Augmentin Unknown Drug Allergy 04/03/2012 active erythromycin Erythromycin Base Unknown Drug Allergy 2011 active Keflex Unknown Drug Allergy 04/03/2012 active Tape Unknown Allergy Active Reason For Referral No Information Medications Medication SIG (Take, Route, Frequency, Duration) Notes Start Date End Date Status Pravastatin Sodium 10 MG 1 tablet Orally Once a day Active ciclopirox 80 MG/ML Topical Solution CUTANEOUS ciclopirox 80 MG/ML Topical SolutionOriginal Medicationciclopirox 80 MG/ML Topical Solution *Reorder from Talkable for eRx and Interaction Alerts* 04/05/20 12 Not-Takin g cyclobenzaprine hydrochloride 10 MG Oral Tablet ORAL cyclobenzaprine hydrochloride 10 MG Oral TabletOriginal Medicationcyclobenzaprine hydrochloride 10 MG Oral Tablet *Reorder from Talkable for eRx and Interaction Alerts* 04/03/20 12 Not-Takin g Aspirin 81 81 MG 1 tablet Orally Once a day Active Metoprolol Succinate 25 MG 1 capsule Orally Once a day Active Immunizations Vaccine Route Administration Date Status Comme nts Influenza (split), seasonal, intradermal, preservative free Unknown 03/04/2012 Administered Influenza, quadrivalent, spl it, preservative free, 3 years or older Unknown 01/28/2016 Administered Influenza, quadrivalent, spl it, preservative free, 3 years or older Unknown 03/04/2018 Administered Influenza, quadrivalent, spl it, preservative free, 3 years or older Unknown 01/02/2020 Administered Pfizer-Biontech Covid-19 Vac cine 1st dose Unknown 05/28/2020 Administered Pfizer-Biontech Covid-19 Vac cine 1st dose Unknown 06/18/2020 Administered Pneumococcal conjugate PCV 13 Unknown 11/22/2018 Admini stered Pneumococcal polysaccharide PPV23 Unknown 10/15/2019 Ad ministered Zoster Unknown 09/11/2013 Administered Vital Signs Height-cm 165.10 cm 08/28/2024 Weight-kg 61.69 kg 08/28/2024 Height 65.00 in 08/28/2024 Weight 136 lbs 08/28/2024 BMI 22.63 kg/m2 08/28/2024 Encounters Encounter Location Date Provider Diagnosis [address] [id number] 08/28/2024 NIKOS OLIVA Onychomycosis B35.1 ; Pain in right toe(s) M79.674 ; Pain in left toe(s) M79.675 ; Atherosclerosis of [place] arteries of extremities with intermittent claudication, bilateral legs I70.213 ; Acquired keratosis [keratoderma] palmaris et plantaris L85.1 and Other hammer toe(s) (acquired), right foot M20.41 Assessments Encounter Date Diagnosis (ICD Code) Assessment Notes Treatment Notes Treatment Clinical Notes Section Notes 08/28/2024 Pain in right toe(s) (ICD-10 - M79.674) 08/28/2024 Onychomycosis (ICD-10 - B35.1) NAIL DEBRIDEMENT: Nails 1-5 Bilateral were debrided extensively with nail nippers and emery board, reducing length and girth to pink healthy tissue with any subungual debris and necrotic tissue removed 08/28/2024 Pain in left toe(s) (ICD-10 - M79.675) 08/28/2024 Atherosclerosis of [place] arteries of extremities with intermittent claudication, bilateral [...] M20.41) CH[facility] New Balance orthotics and Consider tijy-qla-etgvdfo orthotics Plan Of Treatment Next Appt Details Provider Name:NIKOS OROZCO, 12/18/2024 12:50:00 PM, [address] [place] [address], [id number], Insurance Providers Payer Name Payer Address Payer Phone Subscriber Number Group Number Insured Name Patient Relationship to Insured Coverage Start Date Coverage End Date Medicare Part B [place] [address] [place] [address] [id number] KHOA PLAZA Self - patient is the insured 9 [facility] [address] [address] [facility] [place] [address] [id number] KHOA PLAZA Self - patient is the insured Medical (General) History Medical History History ICD Code kidney stones Bladder infections High Blood Pressure
[2024-10-28 13:02] VITALS: BP 126/74; PULSE 78; RESP 14; TEMP 36.4; O2SAT 98; BMI 23.1
[2024-10-28] MEDS: ZOLEDRONIC ACID 5 MG/100 ML 100 ML 400 MG IVPB (13:05)
--- NOTE | 2024-10-28 13:40 | PC.NURSE ---
Tolerated Reclast infusion well. NO cbc needed for infusion. Had to check yes on MAR to bypass to give.
[2024-10-28 13:41] VITALS: BP 129/78
== END 2024-10-28 12:46 | disposition home or self-care (01) ==
PROVIDERS: PCP Internal Medicine; Visit Provider Internal Medicine
DX: M81.0 Age-related osteoporosis without current pathological fracture (principal)
CPT/HCPCS: 96374; J3489

== ENCOUNTER 2024-10-30 10:19 | Outpatient (CLI) | payer MEDICARE, SELFPAY ==
--- NOTE | ~2024-10-30 | MM_ITS ---
EXAMINATION: MM screening helen BI w matthew HISTORY: Screening TECHNIQUE: Craniocaudal and mediolateral oblique 3-D tomosynthesis images were obtained and synthetic 2-D images were generated. CAD analysis was submitted and interpreted. COMPARISON: Comparison to multiple prior studies sequentially, with oldest reviewed study dated 10/29. BREAST PARENCHYMAL COMPOSITION: There are scattered areas of fibroglandular density. FINDINGS: There is no evidence of suspicious mass, calcification, or architectural distortion to sug gest malignancy in either breast. IMPRESSION: 1. No mammographic evidence of malignancy. 2. Recommend routine screening mammography in one year. BI-RADS Category 1: Negative Reviewed, dictated and finalized at location B.
--- OUTSIDE RECORDS SUMMARY | 2024-10-30 10:25 | XMS_ITS | Referral Summary ---
Author Organization [facility] Address [address] [place] [address] Care Team Providers Care Push Button Switch Assembler Name Role Phone Merlin Fernandez MD Primary Care Provider [phone] Allergies Active Allergy Reactions Criticality Noted Date [...] Maintenance Insurance MEDICARE COMMERCIAL GENERIC Care Teams Push Button Switch Assembler Relationship Specialty Start Date End Date Merlin Fernandez MD [address] [place] [address] PCP - General Internal Medicine 09/07/20
--- OUTSIDE RECORDS SUMMARY | 2024-10-30 10:25 | XMS_ITS | Clinical Summary ---
Author Organization [facility] Address [address] [place] [address] Care Team Providers Care Paper Coater Name Role Phone Merlin Fernandez MD Primary Care Provider [phone] Allergies Active Allergy Reactions Criticality Noted Date [...] Maintenance Insurance MEDICARE COMMERCIAL GENERIC Care Teams Paper Coater Relationship Specialty Start Date End Date Merlin Fernandez MD [address] [place] [address] PCP - General Internal Medicine 09/07/20
--- OUTSIDE RECORDS SUMMARY | 2024-10-30 10:25 | XMS_ITS | Encounter Summary ---
Author Organization [facility] Address [address] [place] [address] Care Team Providers Care Instructional Coordinator Name Role Phone Merlin Fernandez MD Primary Care Provider [phone] Kaden Harley MD Unavailable [phone] Barbara Landeros APRN, BOOKKEEPING ASSISTANT-C Unavailable [phone]- [phone] Encounter Details Date Type Department Care Team (Late Contact Info) Description 01/01/2019 Abstract [facility] [address] [place] [phone] Abstract, Doc [facility] Social History Tobacco [...] Sex Assigned at Female 04/29/2024 1:16 PM RESEARCH ASST Legal Sex Female 2:54 PM CDT Gender Identity Not on file Sexual Orientation Not on file 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 Non Invasive Cardiology - [facility] [address] [place] [address] Barbara Landeros APRN, BOOKKEEPING ASSISTANT-C [address] [phone] 05/04/2025 2:00 PM RESEARCH ASST App[address] [facility] Vascular Ultrasound - [facility] [address] [place] [address] Barbara Landeros APRN, BOOKKEEPING ASSISTANT-C [address] [phone] 05/04/2025 3:00 PM RESEARCH ASST Office Visit [facility] el [address] [place] [address] Barbara Landeros APRN, BOOKKEEPING ASSISTANT-C [address] [phone] documented as of this encounter Visit Diagnoses Not on filedocumented in this encounter Care Teams Instructional Coordinator Relationship Specialty Start Date End Date Merlin Fernandez MD [address] [place] [address] PCP - General INTERNAL MEDICINE 01/01/19 Kaden Harley MD [address] [place] [address] [place] Rigger Helper CARDIOVASCULAR DISEASE 01/01/19 Barbara Landeros APRN, BOOKKEEPING ASSISTANT-C [address] [phone] NURSE PRACTITIONER 03/28/21 documented as of this encounter
--- OUTSIDE RECORDS SUMMARY | 2024-10-30 10:25 | XMS_ITS | Encounter Summary ---
Author Organization [facility] Address [address] [place] [address] Care Team Providers Care One Piece Expansion Maker Hand Name Role Phone Merlin Fernandez MD Primary Care Provider [phone] Kaden Harley MD Unavailable [phone] Barbara Landeros APRN, LAYOUT INSPECTOR-C Unavailable [phone] Encounter Details Date Type Department Care Team (Late st Contact Info) Description 09/30/2019 Abstract [facility] [address] [place] [address] Abstract, Doc [facility] Social History [...] Sex Assigned at Female 04/29/2024 1:16 PM BACKEND TESTER Legal Sex Female 2:54 PM CDT Gender Identity Not on file Sexual Orientation Not on file 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 Non Invasive Cardiology - [place] [address] [place] [address] Barbara Landeros APRN, LAYOUT INSPECTOR-C [address] [phone] 05/04/2025 2:[address] [facility] Vascular Ultrasound - [facility] [address] [place] [address] Barbara Landeros APRN, LAYOUT INSPECTOR-C [address] [phone] 05/04/2025 3:00 PM BACKEND TESTER [facility] [address] [place] [phone] Barbara Landeros APRN, LAYOUT INSPECTOR-C [address] [phone] documented as of this encounter Procedures Procedure [...] on filedocumented in this encounter Care Teams One Piece Expansion Maker Hand Relationship Specialty Start Date End Date Merlin Fernadnez MD [address] [place] [address] PCP - General INTERNAL MEDICINE 01/01/19 Kaden Harley MD [address] [place] [phone] [place] Forensic Audit Expert CARDIOVASCULAR DISEASE 01/01/19 Barbara Landeros APRN, LAYOUT INSPECTOR-C [address] [facility] [address] [place] [phone] NURSE PRACTITIONER 03/28/21 documented as of this encounter
--- OUTSIDE RECORDS SUMMARY | 2024-10-30 10:25 | XMS_ITS | Encounter Summary ---
Author Organization [facility] [place] Address [facility] [place] [address] Care Team Providers Care Bleach Boiler Puller Name Role Phone Merlin Fernandez MD Primary Care Provider [phone] Kaden Harley MD Unavailable Barbara Landeros APRN, TAPPER HAND-C Unavailable [phone] Encounter Details Date Type Department Care Team (Late Contact Info) Description 01/16/2019 Abstract [facility] [address] [place] [address] Kaden Harley MD [address] [place] [address] Social History Tobacco Use Types [...] Sex Assigned at Female 04/29/2024 1:16 PM TRACER BULLET CHARGING MACHINE OPERATOR Legal Sex Female 2:54 PM CDT Gender Identity Not on file Sexual Orientation Not on file 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 Not on fi le documented as of this encounter Plan of Treatment Upcoming Encounters Date Type Department Care Team (Late Contact Info) Description 05/04/2025 1:00 PM TRACER BULLET CHARGING MACHINE OPERATOR Appointment [facility] In[facility]iology - [facility] [address] [place] [address] Barbara Landeros APRN, TAPPER HAND-C [address] [phone] 05/04/2025 2:00 PM TRACER BULLET CHARGING MACHINE OPERATOR Appointment [facility] Vascular Ultrasound - [facility] [address] [place] [address] Barbara Landeros APRN, TAPPER HAND-C [address] [phone] 05/04/2025 3:00 PM TRACER BULLET CHARGING MACHINE OPERATOR Office Visit [facility] [address] [place] [phone] Barbara Landeros APRN, TAPPER HAND-C [address] [address] documented as of this encounter Procedures Procedure Name Priority Date/Time Associated Diagnosis Comments AST/SGOT Routine 01/16/2019 Chest pain Hyperlipidemia LIPID PANEL Routine 01/16/2019 Chest pain Hyperlipidemia documented in this encounter Results * AST/SGOT (01/16/2019) AST 16 01/16/2019 Barbara Landeros APRN, TAPPER HANDPreeti LABORATORY Final Result * LIPID PANEL (01/16/2019) CHOLESTEROL 250 HDL 82 TRIGLYCERIDES 62 CHOL/HDL RATIO 3.0 LDL (CALCULATED) 156 01/16/2019 Barbara Landeros APRN, TAPPER HAND-C LABORATORY Final Result documented in this encounter Visit Diagnoses Diagnosis Chest pain Chest pain, unspecified Hyperlipidemia Other and unspecified hyperlipidemia documented in this encounter Care Teams Bleach Boiler Puller Relationship Specialty Start Date End Date Merlin Fernandez MD [address] [place] [address] PCP - General INTERNAL MEDICINE 01/01/19 Kaden Harley MD [address] [place] [address] Rodney Utility Pipe Layer CARDIOVASCULAR DISEASE 01/01/19 Barbara Landeros APRN, TAPPER HAND-C [address] [facility] [address] [place] [address] NURSE PRACTITIONER 03/28/21 documented as of this encounter
--- OUTSIDE RECORDS SUMMARY | 2024-10-30 10:25 | XMS_ITS | Encounter Summary ---
Author Organization [facility] Address [facility] [place] [address] Care Team Providers Care Archival Studies Professor Name Role Phone Merlin Fernandez MD Primary Care Provider [phone] Kaden Harley MD Unavailable [phone] Barbara Landeros APRN SECONDARY SOCIAL STUDIES TEACHER-C Unavailable [phone] Reason for Visit * Reason Onset Date Comments Results 01/09/2019 Encounter Details Date Type Department Care Team (Late st Contact Info) Description 01/09/[address] [facility] [address] [place] [address] Pedro Pablo Donahue MD [address] 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 Not on file [...] st Contact Info) Description 05/04/2025 1:00 PM DINING ROOM HOSTESS Appointment [facility] Non Invasive Cardiology - [facility] [address] [place] [address] Barbara Landeros APRN, SECONDARY SOCIAL STUDIES TEACHER-C [address] [phone] 05/04/2025 2:00 PM DINING ROOM HOSTESS Appointment [facility] Vascular Ultrasound - [facility] [address] [place] [address] Barbara Landeros APRN, SECONDARY SOCIAL STUDIES TEACHER-C [address] [address] [phone] 05/04/2025 3:00 PM DINING ROOM HOSTESS [facility] [address] [place] [address] [phone] Barbara Landeros APRN, SECONDARY SOCIAL STUDIES TEACHER-C [address] [phone] documented as of this encounter Visit Diagnoses Not on filedocumented in this encounter Care Teams Archival Studies Professor Relationship Specialty Start Date End Date Merlin Fernandez MD [address] [place] [address] PCP - General INTERNAL MEDICINE 01/01/19 Kaden Harley MD [address] [place] [address] [place] Multi Operation Machine Operator CARDIOVASCULAR DISEASE 01/01/19 Barbara Landeros, COURTNEY, SECONDARY SOCIAL STUDIES TEACHER-C [address] [facility] [address] [place] [address] NURSE PRACTITIONER 03/28/21 documented as of this encounter
--- OUTSIDE RECORDS SUMMARY | 2024-10-30 10:26 | XMS_ITS | Patient Health Record ---
Author Organization [facility] Address [address] [place], [place] [id number] Care Team Providers Care Dynamite Packing Machine Operator Name Role Phone SAMEERA WYNN Unavailable [phone] Merlin Fernandez Unavailable Unavailable NIKOS OLIVA Unavailable [phone] Allergies Allergen (clinical drug ingredient) Drug/Non Drug [...] Medicationciclopirox 80 MG/ML Topical Solution *Reorder from [employer] for eRx and Interaction Alerts* 04/05/20 12 Not-Takin g cyclobenzaprine hydrochloride 10 MG Oral Tablet ORAL cyclobenzaprine hydrochloride 10 MG Oral TabletOriginal Medicationcyclobenzaprine hydrochloride 10 MG Oral Tablet *Reorder from [employer] for eRx and Interaction Alerts* 04/03/20 12 [...] 08/28/2024 Encounters Encounter Location Date Provider Diagnosis [address] [id number] 08/28/2024 NIKOS OLIVA Onychomycosis B35.1 ; Pain in right toe(s) M79.674 ; Pain in left toe(s) M79.675 ; 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, bilateral [...] toe(s) (ICD-10 - M79.675) 08/28/2024 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, bilateral [...] M20.41) CHange New Balance orthotics and Consider myxd-qrf-ytgtinx orthotics Plan Of Treatment Next Appt Details Provider Name:NIKOS OROZCO, 12/18/2024 12:50:00 PM, [address] [place] [address], [id number], Insurance Providers Payer Name Payer Address Payer Phone Subscriber Number Group Number Insured Name Patient Relationship to Insured Coverage Start Date Coverage End Date Medicare Part [place] [address] [place] [address] [id number] KHOA PLAZA Self - patient is the insured [facility] [address] [address] [place] [address] [phone] [id number] KHOA PLAZA Self - patient is the insured Medical (General) History Medical History History ICD Code kidney stones Bladder infections High Blood Pressure
--- OUTSIDE RECORDS SUMMARY | 2024-10-30 10:26 | XMS_ITS | Clinical Summary ---
Author Organization [facility] Address [address] [place] [address] Care Team Providers Care Tool Shaper Set Up Operator Name Role Phone Merlin Fernandez MD Primary Care Provider [phone] Kaden Harley MD Unavailable Barbara Landeros APRN, DIRECTOR OF SPEECH PATHOLOGY-C Unavailable [phone] Allergies Active Allergy Reactions Criticality Noted Date [...] Diagnosed Date Coronary artery disease invo lving [place] coronary artery of [place] heart without angina pectoris 09/13/2019 Mixed hyperlipidemia [...] Sex Assigned at Female 04/29/2024 1:16 PM INVERFORM MACHINE OPERATOR Legal Sex Female 2:54 PM CDT Gender Identity Not on file Sexual Orientation Not on file 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 Not on fi le Last Filed Vital Signs Vital Sign Reading Time Taken Comments Blood Pressure 120/72 04/29/2024 1:32 PM INVERFORM MACHINE OPERATOR Pulse 55 04/29/2024 1:32 PM INVERFORM MACHINE OPERATOR Temperature - - Respiratory Rate 16 04/29/2024 1:32 PM INVERFORM MACHINE OPERATOR Oxygen Saturation 97% 04/29/2024 1:32 PM INVERFORM MACHINE OPERATOR Inhaled Oxygen Concentration - - Weight 63.5 kg (140 lb) 04/29/2024 1:32 PM INVERFORM MACHINE OPERATOR Height 165.1 cm (5' 5) 04/29/2024 1:32 PM INVERFORM MACHINE OPERATOR Body Mass Index 23.3 04/29/2024 1:32 PM INVERFORM MACHINE OPERATOR Plan of Treatment Upcoming Encounters Date Type Department Care Team (Late st Contact Info) Description 05/04/2025 1:00 PM INVERFORM MACHINE OPERATOR Appointment [facility] Non Invasive Cardiology - [place] [address] [place] [address] Barbara Landeros APRN, DIRECTOR OF SPEECH PATHOLOGY-C [address] [phone] 05/04/2025 2:00 PM INVERFORM MACHINE OPERATOR Appointment [facility] Vascular Ultrasound - [place] [address] [place] [address] Barbara Landeros APRN, DIRECTOR OF SPEECH PATHOLOGY-C [address] [phone] 05/04/2025 3:00 PM INVERFORM MACHINE OPERATOR Office Visit [facility] [address] [place] [address] Barbara Landeros, SALES TRAINING MANAGER, DIRECTOR OF SPEECH PATHOLOGY-C [address] [facility] [address] [place] [address] Health Maintenance Due Date Last [...] topic Meningococcal Vaccine Aged Out No marino clariat eligible based on patient's age to complete [...] Recently Relevant to Health Maintenance Insurance MEDICARE [facility] MEDICARE [facility] Care Teams Tool Shaper Set Up Operator Relationship Specialty Start Date End Date Merlin Fernandez MD [address] [place] [address] PCP - General INTERNAL MEDICINE 01/01/19 Kaden Harley MD [address] [place] [address] [place]an[place]ity Shipboard Intelligence Analyst CARDIOVASCULAR DISEASE 01/01/19 Barbara Landeros, SALES TRAINING MANAGER, DIRECTOR OF SPEECH PATHOLOGY-C [address] [facility] [address] [place] [address] NURSE PRACTITIONER 03/28/21
--- OUTSIDE RECORDS SUMMARY | 2024-10-30 10:26 | XMS_ITS ---
Author Organization [facility] Address [address] [place], [place] [address] Care Team Providers Care Assembler Leather Goods Name Role Phone SAMEERA WYNN Unavailable [phone] Merlin Fernandez Unavailable Unavailable NIKOS OLIVA Unavailable [phone] Allergies Allergen (clinical drug ingredient) Drug/Non Drug [...] Medicationciclopirox 80 MG/ML Topical Solution *Reorder from [employer] for eRx and Interaction Alerts* 04/05/20 12 Not-Takin g cyclobenzaprine hydrochloride 10 MG Oral Tablet ORAL cyclobenzaprine hydrochloride 10 MG Oral TabletOriginal Medicationcyclobenzaprine hydrochloride 10 MG Oral Tablet *Reorder from [employer] for eRx and Interaction Alerts* 04/03/20 12 Not-Takin g Aspirin 81 81 MG 1 tablet Orally Once a day Active Metoprolol Succinate 25 MG 1 capsule Orally Once a day Active Vital Signs Height 65.00 in 08/28/2024 Weight 136 lbs 08/28/2024 BMI 22.63 kg/m2 08/28/2024 Height-cm 165.10 cm 08/28/2024 Weight-kg 61.69 kg 08/28/2024 Encounters Encounter Location Date Provider Diagnosis [address] [id number] 08/28/2024 NIKOS OLIVA Onychomycosis B35.1 ; Pain in right toe(s) M79.674 ; Pain in left toe(s) M79.675 ; Atherosclerosis of [place] arteries of extremities with intermittent claudication, bilateral [...] toe(s) (ICD-10 - M79.675) 08/28/2024 Atherosclerosis of [place] arteries of extremities with intermittent claudication, bilateral [...] M20.41) CHange New Balance orthotics and Consider tqvr-qnw-lgkajiz orthotics Plan Of Treatment Treatment Notes Assessment Notes Onychomycosis NAIL DEBRIDEMENT: Na ils 1-5 Bilateral were debrided extensively with nail nippers and emery board, reducing length and girth to pink healthy tissue with any subungual debris and necrotic tissue removed Atherosclerosis of [place] ar teries of extremities with intermittent claudication, [...] ot CHange New Balance orthotics and Consider pibd-zte-fjovesl orthotics Next Appt Details Provider Name:NIKOS OROZCO, 12/18/2024 12:50:00 PM, [address] [place] [address], [id number], Progress Notes * KHOA PLAZA LaurentDOB:[birth year] (69 yo F)Acc No.[id number]:08/28/2024 Patient: KHOA TRINH Provider: Vidhi OLIVA :1955 A ge:69 Y S ex:Female Date:08/28/2024 Address:[address] [place], [place] [address] Subjective: * Chief Complaints: * 1 . [...] nails way in the past. , [place]: [facility]. * ROS: G eneral / Constitutional: Patient [...] Medicationciclopirox 80 MG/ML Topical Solution *Reorder from [employer] for eRx and Interaction Alerts*, Not-Taking cyclobenzaprine hydrochloride 10 MG Oral Tablet ORAL , Notes to Pharmacist: cyclobenzaprine hydrochloride 10 MG Oral TabletOriginal Medicationcyclobenzaprine hydrochloride 10 MG Oral Tablet *Reorder from [employer] for eRx and Interaction Alerts*, Medication List [...] here is normal gait noted. N eurologic: [place] 5.07 monofilament I ntact protective sensation via [...] - M79.675 4 . A therosclerosis of [place] arteries of extremities with intermittent claudication, bilateral legs - I70.213 5 . 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 O ther hammer toe(s) (acquired), right foot - M20.41 Plan: * Treatment: 2. A therosclerosis of [place] arteries of extremities with intermittent claudication, bilateral [...] Notes: CHange New Balance orthotics and Consider wrfq-lgt-pamerzx orthotics * Immunizations: Immunization record has been reviewed and updated. * Procedure Codes: 1 1056 TRIM SKIN LESIONS, 2 TO 4, Modifiers: Q8 , 47549 DEBRIDE NAIL, 6 OR MORE, Modifiers: 59 , Q8 * Billing Information: * Visit Code: * Procedure Codes: 73309 TRIM SKIN LESIONS, 2 TO 4. Modifiers: Q8 59966 DEBRIDE NAIL, 6 OR MORE. Modifiers: 59, Q8 * Electronic signature of MICHELE OLIVA DPM on 10/30/2024 at 10:25 AM CDT Sign off status: Pending * Provider: Vidhi OLIVA Date: 0 08/28/2024 Generated for Hernan khoury/Christel/Amber on: 0 10/30/2024 10:25 AM CDT History and Physical Notes * [...] nails way in the past. , MA: [facility] Examination Category Sub-Category Detail Notes Category Not es Dermatologic Skin findings: bilateral, Skin is thin, atrophic and lacking pedal hair. Nail pathology: Nails 1st digit bila teral are elongated, thick, discolored, and dystrophic with subungual debris. They are painful to palpation Hyperkeratotic Skin Lesion There is no e vidence of hyperkeratosis Neurologic [place] 5.07 monofilamen t Intact protective sensation via [...]
== END 2024-10-30 10:20 | disposition home or self-care (01) ==
PROVIDERS: PCP Internal Medicine; Visit Provider Obstetrics & Gynecology
DX: Z12.31 Encounter for screening mammogram for malignant neoplasm of breast (principal)
CPT/HCPCS: 77063; 77067

== ENCOUNTER 2024-12-22 10:18 | Outpatient (CLI) | payer MEDICARE, SELFPAY ==
--- OUTSIDE RECORDS SUMMARY | 2024-08-28 07:30 | XMS_ITS ---
Author Organization [facility] Address [address] [place], [place] [id number] Care Team Providers Care Mash Processing Operator Name Role Phone SAMEERA WYNN Unavailable [phone] Merlin Fernandez Unavailable Unavailable NIKOS OLIVA Unavailable [phone] Allergies Allergen (clinical drug ingredient) Drug/Non Drug Allergy documented on EMR Reaction Allergy Type Onset Date Status amoxicillin / clavulanate Augmentin Unknown Drug Allergy 04/03/2012 active erythromycin Erythromycin Base Unknown Drug Allergy 2011 active Keflex Unknown Drug Allergy 04/03/2012 active Tape Unknown Allergy Active REASON FOR VISIT Left foot pain, GC Medications Medication SIG (Take, Route, Frequency, Duration) Notes Start Date End Date Status Pravastatin Sodium 10 MG 1 tablet Orally Once a day Active ciclopirox 80 MG/ML Topical Solution CUTANEOUS ciclopirox 80 MG/ML Topical SolutionOriginal Medicationciclopirox 80 MG/ML Topical Solution *Reorder from [facility] for eRx and Interaction Alerts* 04/05/20 12 Not-Takin g cyclobenzaprine hydrochloride 10 MG Oral Tablet ORAL cyclobenzaprine hydrochloride 10 MG Oral TabletOriginal Medicationcyclobenzaprine hydrochloride 10 MG Oral Tablet *Reorder from [facility] for eRx and Interaction Alerts* 04/03/20 12 Not-Takin g Aspirin 81 81 MG 1 tablet Orally Once a day Active Metoprolol Succinate 25 MG 1 capsule Orally Once a day Active Vital Signs Height 65.00 in 08/28/2024 Weight 136 lbs 08/28/2024 BMI 22.63 kg/m2 08/28/2024 Height-cm 165.10 cm 08/28/2024 Weight-kg 61.69 kg 08/28/2024 Encounters Encounter Location Date Provider Diagnosis [address] [id number] 08/28/2024 NIKOS OLIVA Onychomycosis B35.1 ; Pain in right toe(s) M79.674 ; Pain in left toe(s) M79.675 ; Atherosclerosis of [place] arteries of extremities with intermittent claudication, bilateral legs I70.213 ; Acquired keratosis [keratoderma] palmaris et plantaris L85.1 and Other hammer toe(s) (acquired), right foot M20.41 Assessments Encounter Date Diagnosis (ICD Code) Assessment Notes Treatment Notes Treatment Clinical Notes Section Notes 08/28/2024 Onychomycosis (ICD-10 - B35.1) NAIL DEBRIDEMENT: Nails 1-5 Bilateral were debrided extensively with nail nippers and emery board, reducing length and girth to pink healthy tissue with any subungual debris and necrotic tissue removed 08/28/2024 Pain in right toe(s) (ICD-10 - M79.674) 08/28/2024 Pain in left toe(s) (ICD-10 - M79.675) 08/28/2024 Atherosclerosis of [place] arteries of extremities with intermittent claudication, bilateral legs (ICD-10 - I70.213) Check and protect LE bilateral daily. Call if any changes or concerns. 08/28/2024 Acquired keratosis [keratoderma] palmaris et plantaris (ICD-10 - L85.1) Hyperkeratosis: The skin was prepped with isopropyl alcohol. Using a 15-blade scalpel, the hyperkeratotic skin lesions were sharply debrided down to healthy appearing skin. 08/28/2024 Other hammer toe(s) (acquired), right foot (ICD-10 - M20.41) [employer] orthotics and Consider [id number]-[id number]-fvpferc orthotics Plan Of Treatment Treatment Notes Assessment Notes Onychomycosis NAIL DEBRIDEMENT: Na ils 1-5 Bilateral were debrided extensively with nail nippers and emery board, reducing length and girth to pink healthy tissue with any subungual debris and necrotic tissue removed Atherosclerosis of [place] ar teries of extremities with intermittent claudication, bilateral legs Check and protect LE bilateral daily. Ca ll if any changes or concerns. Acquired keratosis [keratode rma] palmaris et plantaris Hyperkeratosis: The skin was prepped with isopropyl alcohol. Using a 15-blade scalpel, the hyperkeratotic skin lesions were sharply debrided down to healthy appearing skin. Other hammer toe(s) (acquired), right fo ot [employer] orthotics and Consider yoxp-gvi-awlcczy orthotics Progress Notes * KHOA PLAZA JDOB:[birth year] (69 yo F)Acc No.[id number]:08/28/2024 Patient: KHOA TRINH Provider: Vidhi OLIVA :1955 A ge:69 Y S ex:Female Date:08/28/2024 Address:[address] [place], [place] [id number] Subjective: * Chief Complaints: * 1 . Left foot pain, GC. * HPI: H PI: New Complaint E stablished patient presents with a new complaint., Patient complains of an issue to a sore on the lateral side of the left foot. Patient states that this is possibly due to wearing old tennis shoes. Patient has thick great toenails that she would like trimmed. She states that she used to play softball so there has been some trauma to the nails way in the past. , MA: bo. * ROS: G eneral / Constitutional: Patient denies c hills, fatigue, fever. P atient complains of p ain. C ardiovascular: Patient denies p alpatations, other vascular anomalies.?Patient complains of h air loss on legs, extremities cool. M usculoskeletal: Patient denies o rthotic use, broken foot bone, childhood foot problems. S kin: Patient denies h monika, rash. P atient complains of f ungal nails, nail changes, dry skin. N eurologic: Patient denies s troke, Numbness, Burning/Tingling. ? * Medical History: K idney stones, Bladder infections, High Blood Pressure. * Medications: T aking Aspirin 81 81 MG Tablet Delayed Release 1 tablet Orally Once a day , Taking Metoprolol Succinate 25 MG Capsule ER 24 Hour Sprinkle 1 capsule Orally Once a day , Taking Pravastatin Sodium 10 MG Tablet 1 tablet Orally Once a day , Not-Taking ciclopirox 80 MG/ML Topical Solution CUTANEOUS , Notes to Pharmacist: ciclopirox 80 MG/ML Topical SolutionOriginal Medicationciclopirox 80 MG/ML Topical Solution *Reorder from [facility] for eRx and Interaction Alerts*, Not-Taking cyclobenzaprine hydrochloride 10 MG Oral Tablet ORAL , Notes to Pharmacist: cyclobenzaprine hydrochloride 10 MG Oral TabletOriginal Medicationcyclobenzaprine hydrochloride 10 MG Oral Tablet *Reorder from [facility] for eRx and Interaction Alerts*, Medication List reviewed and reconciled with the patient * Allergies: A ugmentin: Allergy - Onset Date 04/03/2012, Erythromycin Base: Allergy - Onset Date 04/03/2012, Keflex: Allergy - Onset Date 04/03/2012, Tape. Objective: * Vitals: S hoe Size: 7.5, Wt:136lbs, Wt-k.69 kg, Ht: 65.00 in, Ht-cm: 165.10 cm, BMI:22.63Index, Body Surface Area: 1.68. * Examination: C onstitutional: Constitutional T he patient is awake, alert, well developed, well groomed and well nourished.. M usculoskeletal: Muscle Strength M uscle strength is 5/5 in regards to dorsiflexion, plantarflexion, inversion, and eversion in bilateral lower extremities.. Hammertoes D orsally contracted digits 2-5 bilateral. The deformity is rigid and nonreducible, calluses juno of toes laterally bilat 2-5. Foot Structure T he foot structure is noted to be, normal, bilaterally. Gait T here is normal gait noted. N eurologic: Mitchell-Weinstin 5.07 monofilament I ntact protective sensation via 5.07 g swmf bilateral. Gross sensation G ross sensation is intact to light touch.? V ascular: Dorsalis pedis pulse: 1 /4, bilateral. Posterior tibial pulse: 0 /4, bilaterally. Capillary refill: l ess than 3 seconds, bilaterally. ? D ermatologic: Skin findings: b ilateral, Skin is thin, atrophic and lacking pedal hair.. Nail pathology: N ails 1st digit bilateral are elongated, thick, discolored, and dystrophic with subungual debris. They are painful to palpation. Hyperkeratotic Skin Lesion T here is no evidence of hyperkeratosis. D ermatologic: Skin findings: S kin is thin, atrophic and lacking pedal hair.. Hyperkeratotic Skin Lesion T here is evidence of hyperkeratotic skin lesions present on the lateral plantar left styloid process and distal juno of digits 2-5 bilat. Mild pain on palpation. no heat, no fluctuance.. M usculoskeletal: Foot Structure T he foot structure is noted to be, normal very narrow bilateral foot. Hammertoes F lexion contracture of the following digits:, Dorsally contracted digits 2-5 bilateral. The deformity is rigid and nonreducible. ? Assessment: * Assessment: 1. O nychomycosis - B35.1 (Primary) 2 . P ain in right toe(s) - M79.674? 3. P ain in left toe(s) - M79.675 4 . A therosclerosis of [place] arteries of extremities with intermittent claudication, bilateral legs - I70.213 5 . 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 O ther hammer toe(s) (acquired), right foot - M20.41 Plan: * Treatment: 2. A therosclerosis of [place] arteries of extremities with intermittent claudication, bilateral legs Notes: Check and protect LE bilateral daily. Call if any changes or concerns. 3. A cquired keratosis [keratoderma] palmaris et plantaris Notes: Hyperkeratosis: The skin was prepped with isopropyl alcohol. Using a 15-blade scalpel, the hyperkeratotic skin lesions were sharply debrided down to healthy appearing skin. 4. O ther hammer toe(s) (acquired), right foot Notes: [employer] New Balance orthotics and Consider qvbt-umz-kikdeic orthotics * Immunizations: Immunization record has been reviewed and updated. * Procedure Codes: 1 1056 TRIM SKIN LESIONS, 2 TO 4, Modifiers: Q8 , 23410 DEBRIDE NAIL, 6 OR MORE, Modifiers: 59 , Q8 * Billing Information: * Visit Code: * Procedure Codes: 71986 TRIM SKIN LESIONS, 2 TO 4. Modifiers: Q8 63850 DEBRIDE NAIL, 6 OR MORE. Modifiers: 59, Q8 * Electronic signature of MICHELE OLIVA , DPM on 12/22/2024 at 11:47 AM CDT Sign off status: Pending * Provider: Vidhi OLIVA Date: 0 08/28/2024 Generated for Hernan khoury/Christel/Amber on: 0 12/22/2024 11:47 AM CDT History and Physical Notes * HPI (History of Present Illness) Category Sub-Category Detail Notes Category Not es HPI New Complaint Established eddie ent presents with a new complaint., Patient complains of an issue to a sore on the lateral side of the left foot. Patient states that this is possibly due to wearing old tennis shoes. Patient has thick great toenails that she would like trimmed. She states that she used to play softball so there has been some trauma to the nails way in the past. , MA: [facility] Examination Category Sub-Category Detail Notes Category Not es Dermatologic Skin findings: bilateral, Skin is thin, atrophic and lacking pedal hair. Nail pathology: Nails 1st digit bila teral are elongated, thick, discolored, and dystrophic with subungual debris. They are painful to palpation Hyperkeratotic Skin Lesion There is no e vidence of hyperkeratosis Neurologic Mitchell-Weinstin 5.07 monofilamen t Intact protective sensation via 5.07 g swmf bilateral Gross sensation Gross sensation is i ntact to light touch Vascular Dorsalis pedis pulse: 1/4, bilateral Capillary refill: less than 3 seconds, bilaterally Posterior tibial pulse: 0/4, bilaterally Musculoskeletal Muscle Strength Muscle strength is 5/5 in regards to dorsiflexion, plantarflexion, inversion, and eversion in bilateral lower extremities. Hammertoes Dorsally contracted digits 2-5 bilateral. The deformity is rigid and nonreducible, calluses juno of toes laterally bilat 2-5 Foot Structure The foot structure i s noted to be, normal, bilaterally Gait There is normal gait noted Constitutional Constitutional The patient is a wake, alert, well developed, well groomed and well nourished. Dermatologic Skin findings: Skin is thin, atrophic and lacking pedal hair. Hyperkeratotic Skin Lesion There is evid ence of hyperkeratotic skin lesions present on the lateral plantar left styloid process and distal juno of digits 2-5 bilat. Mild pain on palpation. no heat, no fluctuance. Musculoskeletal Hammertoes Flexion contract ure of the following digits:, Dorsally contracted digits 2-5 bilateral. The deformity is rigid and nonreducible Foot Structure The foot structure i s noted to be, normal very narrow bilateral foot
--- OUTSIDE RECORDS SUMMARY | 2024-12-18 07:50 | XMS_ITS ---
Author Organization [facility] Address [address] [place], [place] [address] Care Team Providers Care Eyelet Punch Operator Name Role Phone SAMEERA WYNN Unavailable [phone] Merlin Fernandez Unavailable Unavailable NIKOS OLIVA Unavailable [phone] REASON FOR VISIT *General care Encounters Encounter Location Date Provider Diagnosis [address] [id number] 12/18/2024 NIKOS OLIVA Plan Of Treatment No Information Progress Notes * KHOA PLAZADOB:[birth year] (69 yo F)Acc No.[id number]:12/18/2024 Patient: Blayne OTOOLEKHOA GUILLEN Provider: Vidhi OLIVA :1955 A ge:69 Y S ex:Female Date:12/18/2024 Address:[address] [place] [address] [address], [id number] Subjective: * Chief Complaints: * 1 . *General care. * Medical History: Objective: * Vitals: Assessment: Plan: * Treatment: * Billing Information: * Visit Code: * Procedure Codes: * Electronic signature of MICHELE OLIVA DPM on 12/22/2024 at 11:47 AM CDT Sign off status: Pending * Provider: Vidhi OLIVA Date: 12/18/2024 Generated for Wilbertoi ng/Faranig/eTransmitting on: 12/22/2024 11:47 AM CDT
--- NOTE | ~2024-12-22 | XR_ITS ---
XR abdomen/kub 1V 12/22/2024 10:39 INDICATION: Renal stones TECHNIQUE: KUB COMPARISON: None FINDINGS: Bowel gas pattern is normal. There is no evidence of free air, mass, organomegaly, ascites or obstruction. No abnormal calculi are seen. The bones appear intact. There are calcific densities overlying the upper abdomen, likely calcified granulomas. No definitive renal stone identified. IMPRESSION: 1: No acute abdominal abnormality identified. Reviewed, dictated and finalized at location O.
--- OUTSIDE RECORDS SUMMARY | 2024-12-22 11:47 | XMS_ITS | Encounter Summary ---
Author Organization [facility] Address [address] [place] [address] Care Team Providers Care Safety Pin Assembling Machine Operator Name Role Phone Merlin Fernandez MD Primary Care Provider [phone] Kaden Harley MD Unavailable [phone] Barbara Landeros APRN, STEEPLECHASE JOCKEY-C Unavailable [phone] Encounter Details Date Type Department Care Team (Late st Contact Info) Description 09/30/2019 Abstract [facility] [address] [place] [address] Abstract, Doc [facility] Social History [...] Sex Assigned at Female 04/29/2024 1:16 PM PROCESS STRIPPER Legal Sex Female 2:54 PM CDT Gender Identity Not on file Sexual Orientation Not on file 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 Non Invasive Cardiology - [place] [address] [place] [address] Barbara Landeros APRN, STEEPLECHASE JOCKEY-C [address] [phone] 05/04/2025 2:00 PM PROCESS STRIPPER Appointment [facility] Vascular Ultrasound - [facility] [address] [place] [address] Barbara Landeros APRN, STEEPLECHASE JOCKEY-C [address] [phone] 05/04/2025 3:00 PM PROCESS STRIPPER [facility] [address] [place] [phone] Barbara Landeros APRN, STEEPLECHASE JOCKEY-C [address] [phone] documented as of this encounter Procedures Procedure [...] on filedocumented in this encounter Care Teams Safety Pin Assembling Machine Operator Relationship Specialty Start Date End Date Merlin Fernandez MD [address] [place] [address] PCP - General INTERNAL MEDICINE 01/01/19 aKden Harley MD [address] [place] [address] Council Aggregate Conveyor Operator CARDIOVASCULAR DISEASE 01/01/19 Barbara Landeros APRN, STEEPLECHASE JOCKEY-C [address] [facility] [address] [place] [phone] NURSE PRACTITIONER 03/28/21 documented as of this encounter
--- OUTSIDE RECORDS SUMMARY | 2024-12-22 11:47 | XMS_ITS | Encounter Summary ---
Author Organization [facility] Address [address] [place] [address] Care Team Providers Care Yard Crane Operator Name Role Phone Merlin Fernandez MD Primary Care Provider [phone] Kaden Harley MD Unavailable [phone] Barbara Landeros APRN, RETROFIT INSTALLER-C Unavailable [phone] Encounter Details Date Type Department Care Team (Late Contact Info) Description 01/01/2019 Abstract [facility] [address] [place] [address] Abstract, Doc [facility] Social History Tobacco [...] Sex Assigned at Female 04/29/2024 1:16 PM GERIATRICIAN Legal Sex Female 2:54 PM CDT Gender Identity Not on file Sexual Orientation Not on file 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 Non Invasive Cardiology - [facility] [address] [place] [address] Barbara Landeros APRN, RETROFIT INSTALLER-C [address] [phone] 05/04/2025 2:[address] [facility] Vascular Ultrasound - [facility] [address] [place] [address] Barbara Landeros APRN, RETROFIT INSTALLER-C [address] [phone] 05/04/2025 3:00 PM GERIATRICIAN Office Visit [facility] el [address] [place] [address] Barbara Landeros APRN, RETROFIT INSTALLER-C [address] [phone] documented as of this encounter Visit Diagnoses Not on filedocumented in this encounter Care Teams Yard Crane Operator Relationship Specialty Start Date End Date Merlin Fernandez MD [address] [place] [address] PCP - General INTERNAL MEDICINE 01/01/19 Kaden Harley MD [address] [place] [address] [place] Filament Tester CARDIOVASCULAR DISEASE 01/01/19 Barbara Landeros APRN, RETROFIT INSTALLER-C [address] [phone] NURSE PRACTITIONER 03/28/21 documented as of this encounter
--- OUTSIDE RECORDS SUMMARY | 2024-12-22 11:47 | XMS_ITS | Encounter Summary ---
Author Organization [facility] Address [facility] [place] [address] Care Team Providers Care New Account Interviewer Name Role Phone Merlin Fenrandez MD Primary Care Provider [phone] Kaden Harley MD Unavailable [phone] Barbara Landeros APRN, PROPELLER TESTER-C Unavailable Encounter Details Date Type Department Care Team (Late Contact Info) Description 01/16/2019 Abstract 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 Not on fi le documented as of this encounter Plan of Treatment Upcoming Encounters Date Type Department Care Team (Late Contact Info) Description 05/04/2025 1:00 PM GYMNASTICS COACH Appointment [facility] Non Invasive Cardiology - [facility] [address] [place] [address] Barbara Landeros APRN, PROPELLER TESTER-C [address] [phone] 05/04/2025 2:00 PM GYMNASTICS COACH Appointment [facility] Vascular Ultrasound - [facility] [address] [place] [address] Barbara Landeros APRN, PROPELLER TESTER-C [address] [phone] 05/04/2025 3:00 PM GYMNASTICS COACH Office Visit [facility] [address] [place] [phone] Barbara Landeros APRN, PROPELLER TESTER-C [address] [address] documented as of this encounter Procedures Procedure Name Priority Date/Time Associated Diagnosis Comments AST/SGOT Routine 01/16/2019 Chest pain Hyperlipidemia LIPID PANEL Routine 01/16/2019 Chest pain Hyperlipidemia documented in this encounter Results * AST/SGOT (01/16/2019) AST 16 01/16/2019 Barbara Landeros APRN, PROPELLER TESTERPreeti LABORATORY Final Result * LIPID PANEL (01/16/2019) CHOLESTEROL 250 HDL 82 TRIGLYCERIDES 62 CHOL/HDL RATIO 3.0 LDL (CALCULATED) 156 01/16/2019 Barbara Landeros APRN, PROPELLER TESTER-C LABORATORY Final Result documented in this encounter Visit Diagnoses Diagnosis Chest pain Chest pain, unspecified Hyperlipidemia Other and unspecified hyperlipidemia documented in this encounter Care Teams New Account Interviewer Relationship Specialty Start Date End Date Merlin Fernandez MD [address] [place] [address] PCP - General INTERNAL MEDICINE 01/01/19 Kaden Harley MD [address] [place] [address] [place] Director Social Welfare CARDIOVASCULAR DISEASE 01/01/19 Barbara Landeros APRN, PROPELLER TESTER-C [address] [facility] [address] [place] [address] NURSE PRACTITIONER 03/28/21 documented as of this encounter
--- OUTSIDE RECORDS SUMMARY | 2024-12-22 11:47 | XMS_ITS | Clinical Summary ---
Author Organization [facility] Address [address] [place] [address] Care Team Providers Care Grocery Store Manager Name Role Phone Merlin Fernandez MD Primary Care Provider [phone] Kaden Harley MD Unavailable [phone] Barbara Landeros APRN, BACKEND TESTER-C Unavailable [phone] Allergies Active Allergy Reactions Criticality Noted Date [...] Diagnosed Date Coronary artery disease invo lving robinson coronary artery of robinson heart without angina pectoris 09/13/2019 Mixed hyperlipidemia [...] Sex Assigned at Female 04/29/2024 1:16 PM PIPELINER Legal Sex Female 2:54 PM CDT Gender Identity Not on file Sexual Orientation Not on file 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 fi le Last Filed Vital Signs Vital Sign Reading Time Taken Comments Blood Pressure 120/72 04/29/2024 1:32 PM PIPELINER Pulse 55 04/29/2024 1:32 PM PIPELINER Temperature - - Respiratory Rate 16 04/29/2024 1:32 PM PIPELINER Oxygen Saturation 97% 04/29/2024 1:32 PM PIPELINER Inhaled Oxygen Concentration - - Weight 63.5 kg (140 lb) 04/29/2024 1:32 PM PIPELINER Height 165.1 cm (5' 5) 04/29/2024 1:32 PM PIPELINER Body Mass Index 23.3 04/29/2024 1:32 PM PIPELINER Plan of Treatment Upcoming Encounters Date Type Department Care Team (Late st Contact Info) Description 05/04/2025 1:00 PM PIPELINER Appointment [facility] Non Invasive Cardiology - [place] [address] [place] [address] Barbara Landeros APRN, BACKEND TESTER-C [address] [phone] 05/04/2025 2:00 PM PIPELINER Appointment [facility] Vascular Ultrasound - [place] [address] [place] [address] Barbara Landeros APRN, BACKEND TESTER-C [address] [phone] 05/04/2025 3:00 PM PIPELINER Office Visit [facility] [address] [place] [address] Barbara Landeros, RADIATION THERAPY TECHNOLOGIST, BACKEND TESTER-C [address] [facility] [address] [place] [address] Health Maintenance Due Date Last [...] Screening 09/30/2022 09/30/2020 COVID-19 Vaccine (3 - 2024-2 6 season) 2024 06/18/2020, 05/28/2020 Pneumococcal Vaccine: 50+ Years Completed [...] Recently Relevant to Health Maintenance Insurance MEDICARE [facility] MEDICARE [facility] Care Teams Grocery Store Manager Relationship Specialty Start Date End Date Merlin Fernandez MD [address] [place] [address] PCP - General INTERNAL MEDICINE 01/01/19 Kaden Harley MD [address] [place] [address] [place] Api Product Manager CARDIOVASCULAR DISEASE 01/01/19 Barbara Landeros, RADIATION THERAPY TECHNOLOGIST, BACKEND TESTER-C [address] [facility] [address] [place] [address] NURSE PRACTITIONER 03/28/21
--- OUTSIDE RECORDS SUMMARY | 2024-12-22 11:47 | XMS_ITS | Clinical Summary ---
Author Organization [facility] Address [address] [place] [address] Care Team Providers Care Motorcycle Deliverer Name Role Phone Merlin Fernandez MD Primary Care Provider [phone] Allergies Active Allergy Reactions Criticality Noted Date [...] Screening-Mammogram 09/30/2021 021 Covid-19 Vaccine (3 - 2024-2 6 season) 2024 06/18/2020, 05/28/2020 Influenza Vaccine (#1) 2024 0, 03/04/2018, 01/28/2016, Additional history exists Pneumococcal [...] Maintenance Insurance MEDICARE [employer] Care Teams Motorcycle Deliverer Relationship Specialty Start Date End Date Merlin Fernandez MD [address] [place] [address] PCP - General Internal Medicine 09/07/20
--- OUTSIDE RECORDS SUMMARY | 2024-12-22 11:47 | XMS_ITS | Encounter Summary ---
Author Organization [facility] Address [facility] [place] [address] Care Team Providers Care Auto Radiator Mechanic Name Role Phone Merlin Fernandez MD Primary Care Provider [phone] Kaden Harley MD Unavailable [phone] Barbara Landeros APRN OUTSIDE EVENT SALES SPECIALIST-C Unavailable [phone] Reason for Visit * Reason Onset Date Comments Results 01/09/2019 Encounter Details Date Type Department Care Team (Late st Contact Info) Description 01/09/[address] 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 [...] Contact Info) Description 05/04/2025 1:00 PM PROCESS OPERATOR Appointment [facility] Non Invasive Cardiology - [facility] [address] [place] [address] Barbara Landeros APRN, OUTSIDE EVENT SALES SPECIALIST-C [address] [phone] 05/04/2025 2:00 PM PROCESS OPERATOR Appointment [facility] Vascular Ultrasound - [facility] [address] [place] [address] Barbara Landeros APRN, OUTSIDE EVENT SALES SPECIALIST-C [address] [phone] 05/04/2025 3:00 PM PROCESS OPERATOR [facility] [address] [place] [address] [phone] Barbara Landeros APRN, OUTSIDE EVENT SALES SPECIALIST-C [address] [phone] documented as of this encounter Visit Diagnoses Not on filedocumented in this encounter Care Teams Auto Radiator Mechanic Relationship Specialty Start Date End Date Merlin Fernandez MD [address] [place] [address] PCP - General INTERNAL MEDICINE 01/01/19 Kaden Harley MD [address] [place] [phone] [place] Technical Coordinator CARDIOVASCULAR DISEASE 01/01/19 Barbara Landeros, COURTNEY, OUTSIDE EVENT SALES SPECIALIST-C [address] [facility] [address] [place] [address] NURSE PRACTITIONER 03/28/21 documented as of this encounter
--- OUTSIDE RECORDS SUMMARY | 2024-12-22 11:47 | XMS_ITS | Patient Health Record ---
Author Organization [facility] Address [address] [place], [place] [address] Care Team Providers Care Scaffolding Helper Name Role Phone SAMEERA WYNN Unavailable [phone] Merlin Fernandez Unavailable Unavailable NIKOS OLIVA Unavailable [phone] Allergies Allergen (clinical drug ingredient) Drug/Non Drug [...] Medicationciclopirox 80 MG/ML Topical Solution *Reorder from [employer] for eRx and Interaction Alerts* 04/05/20 12 Not-Takin g cyclobenzaprine hydrochloride 10 MG Oral Tablet ORAL cyclobenzaprine hydrochloride 10 MG Oral TabletOriginal Medicationcyclobenzaprine hydrochloride 10 MG Oral Tablet *Reorder from [employer] for eRx and Interaction Alerts* 04/03/20 12 [...] 08/28/2024 Encounters Encounter Location Date Provider Diagnosis [address] [id number] 08/28/2024 NIKOS OLIVA Onychomycosis B35.1 ; Pain in right toe(s) M79.674 ; Pain in left toe(s) M79.675 ; Atherosclerosis of [place] arteries of extremities with intermittent claudication, bilateral [...] toe(s) (ICD-10 - M79.675) 08/28/2024 Atherosclerosis of [place] arteries of extremities with intermittent claudication, bilateral [...] M20.41) CHange New Balance orthotics and Consider [id number] orthotics Plan Of Treatment No Information Insurance Providers Payer Name Payer Address Payer Phone Subscriber Number Group Number Insured Name Patient Relationship to Insured Coverage Start Date Coverage End Date Medicare Part B [place] [address] [place] [phone] [id number] [employer] Self - patient is the insured [address] [facility] [address] [address] [facility] [place] [address] [id number] [employer] Self - patient is the insured Medical (General) History Medical History History ICD Code kidney stones Bladder infections High Blood Pressure
== END 2024-12-22 10:19 | disposition home or self-care (01) ==
PROVIDERS: PCP Internal Medicine; Visit Provider Urology
DX: N20.0 Calculus of kidney (principal)
CPT/HCPCS: 74018